=== PATIENT | female | born 1940 | race Caucasian/White ===

== ENCOUNTER 2016-12-01 12:39 | Emergency (ER) | payer BC ==
[~2016-12-01] VITALS: Ht 152.4 cm; Wt 87.8 kg
[~2016-12-01 12:39] MED LIST: ASPI81TA28 PO; LISI-729 PO; METF-384 PO; NVLGI7030 SC; SIMV40TA4 PO
[2016-12-01 12:47] VITALS: TEMP 36.6
[2016-12-01 13:12] VITALS: O2SAT 96
[2016-12-01] MEDS ORDERED: SODIUM CHLORIDE 0.9% 1000ML 1,000 ML IV STA (13:18)
--- NOTE | 2016-12-01 13:36 | EMERGENCY ROOM VISIT NOTE ---
History First contact with patient: 13:18 Chief Complaint: SYNCOPE (NEAR SYNCOPE) Stated Complaint: BLURRED VISION,BLOOD SUGAR 82, WEAK FAINTY Nursing Triage Summary: PT HERE WITH FEELING OF FAINTNESS. PT STATES HAD AN EPISODE OF NOT BEING ABLE TO SEE OUT OF LEFT EYE. PT STATES STILL HAVING SOME VISUAL DISTURBANCES. PT STATES IS DIABETIC, CHECKED SUGAR AND IT WAS 81. PT DID EAT AFTER THAT. DENIES HEADACHE History of Present Illness The patient is a 76 year old female who presents to the Emergency Room with complaints of lightheadedness and vision changes - felt like getting hypoglycemic - getting low lately, happened at 12:30 - dizziness and lightheadedness - asked to go eat, and her vision in her right eye was like she could barely see with lights described as "flashing z's" - says it was like she was in the fog, and it lasted for about 15 minutes - right hand numbness (regularly occurs and thinks she has carpal tunnel) - couldn't even eat food because of vision problems, was able to eat 1 meatball - did not fall - this morning her belly was burning , so she took something similar to zantac, and resolved - took Advil (3 200mg tabs) last night because of neck pain, was so bad she couldn't sleep, this morning her pain was fine - denies fever, chills, chest pain, shortness of breath, dysuria At 9:30 had 60 units of insulin then had grapefruit and yogurt - Does not regularly take her sugars, but remembers before breakfast her sugars were 116 - Has been getting real weak and shaky and even gets to the point where she is getting "foggy in the brain" - Last happened 2 days ago and was as low as 50 Currently still has right hand numbness, but her vision is better - feels a little shaky Review of Systems See HPI for pertinent positives and negatives. A total of ten systems were reviewed and were otherwise negative. Past Medical/Surgical History Medical Problems: (1) Carpal tunnel syndrome (2) Dehydration (3) Diabetes mellitus (4) Fall (5) Left radial head fracture (6) Vomiting and diarrhea Family History Diabetes mellitus Heart disease Social History Smoking Status: Never Smoker Alcohol Use: none Drug Use: marijuana Marital Status: Housing Status: lives with family Occupation Status: employed Current/Historical Medications Scheduled Aspirin (Aspirin Ec), 81 MG PO QAM Insulin Aspart 70/30 (Novolog Mix 70/30), 60 UNITS SC QAM Insulin Aspart 70/30 (Novolog Mix 70/30), 45 UNITS SC QPM Lisinopril (Zestril), 5 MG PO HS Metformin Hcl (Glucophage), 1,000 MG PO BID Simvastatin (Zocor), 40 MG PO QPM Allergies Coded Allergies: Penicillins (Verified Allergy, Intermediate, RASH, 12/01/16) Sulfa Drugs (Verified Allergy, Unknown, RASH, 12/01/16) Tetracyclines (Verified Allergy, Unknown, RASH, 12/01/16) Physical Exam Vital Signs Date Time Temp Pulse Resp B/P Pulse Ox O2 Delivery O2 Flow Rate FiO2 12/01/16 18:20 61 16 145/70 98 12/01/16 17:39 61 18 146/70 98 Room Air 12/01/16 15:23 63 18 106/51 93 Room Air 12/01/16 14:11 69 16 144/74 96 Room Air 12/01/16 13:12 96 Room Air 12/01/16 13:11 69 12/01/16 12:47 36.6 70 16 164/71 96 Room Air Physical Exam GENERAL: Awake, alert, well-appearing, in no distress HENT: Normocephalic, atraumatic. Oropharynx unremarkable. EYES: Normal conjunctiva. Sclera non-icteric. NECK: Supple. No nuchal rigidity. FROM. No JVD. RESPIRATORY: Clear to auscultation. CARDIAC: Regular rate, normal rhythm. Extremities warm and well perfused. Pulses equal. ABDOMEN: Soft, non-distended. No tenderness to palpation. No rebound or guarding. No masses. RECTAL: Deferred. MUSCULOSKELETAL: Chest examination reveals no tenderness. The back is symmetrical on inspection without obvious abnormality. There is no CVA tenderness to palpation. No joint edema. LOWER EXTREMITIES: Calves are equal size bilaterally and non-tender. No edema. No discoloration. NEURO: Normal sensorium. No sensory or motor deficits noted. SKIN: No rash or jaundice noted. Medical Decision & Procedures Laboratory Results 12/01/16 13:30 Red Blood Count 4.03, Mean Corpuscular Volume 88.6, Mean Corpuscular Hemoglobin 29.3, Mean Corpuscular Hemoglobin Concent 33.1, Mean Platelet Volume 9.8, Neutrophils (%) (Auto) 62.8, Lymphocytes (%) (Auto) 29.2, Monocytes (%) (Auto) 6.3, Eosinophils (%) (Auto) 1.0, Basophils (%) (Auto) 0.4, Neutrophils # (Auto) 4.96, Lymphocytes # (Auto) 2.30, Monocytes # (Auto) 0.50, Eosinophils # (Auto) 0.08, Basophils # (Auto) 0.03 12/01/16 13:30 Test 12/01/16 13:30 12/01/16 16:06 White Blood Count 7.89 K/uL (4.8-10.8) Red Blood Count 4.03 M/uL (4.2-5.4) Hemoglobin 11.8 g/dL (12.0-16.0) Hematocrit 35.7 % (37-47) Mean Corpuscular Volume 88.6 fL (80-100) Mean Corpuscular Hemoglobin 29.3 pg (25-34) Mean Corpuscular Hemoglobin Concent 33.1 g/dl (32-36) Platelet Count 221 K/uL (130-400) Mean Platelet Volume 9.8 fL (7.4-10.4) Neutrophils (%) (Auto) 62.8 % Lymphocytes (%) (Auto) 29.2 % Monocytes (%) (Auto) 6.3 % Eosinophils (%) (Auto) 1.0 % Basophils (%) (Auto) 0.4 % Neutrophils # (Auto) 4.96 K/uL (1.4-6.5) Lymphocytes # (Auto) 2.30 K/uL (1.2-3.4) Monocytes # (Auto) 0.50 K/uL (0.11-0.59) Eosinophils # (Auto) 0.08 K/uL (0-0.5) Basophils # (Auto) 0.03 K/uL (0-0.2) RDW Standard Deviation 46.1 fL (36.4-46.3) RDW Coefficient of Variation 14.1 % (11.5-14.5) Immature Granulocyte % (Auto) 0.3 % Immature Granulocyte # (Auto) 0.02 K/uL (0.00-0.02) Prothrombin Time 11.7 SECONDS (9.0-12.0) Prothromb Time International Ratio 1.1 (0.9-1.1) Activated Partial Thromboplast Time 25.9 SECONDS (21.0-31.0) Partial Thromboplastin Ratio 1.0 Anion Gap 4.0 mmol/L (3-11) Estimated GFR () 56.9 Estimated GFR (Non- 49.1 BUN/Creatinine Ratio 24.4 (10-20) Calcium Level 9.1 mg/dl (8.5-10.1) Magnesium Level 1.7 mg/dl (1.8-2.4) Total Bilirubin 0.4 mg/dl (0.2-1) Direct Bilirubin 0.1 mg/dl (0-0.2) Aspartate Amino Transf (AST/SGOT) 17 U/L (15-37) Alanine Aminotransferase (ALT/SGPT) 28 U/L (12-78) Alkaline Phosphatase 87 U/L (45-117) Total Creatine Kinase 150 U/L (26-192) Creatine Kinase MB 4.7 ng/ml (0.5-3.6) Creatine Kinase MB Ratio 3.1 (0-3.0) Troponin I < 0.015 ng/ml (0-0.045) Total Protein 7.3 gm/dl (6.4-8.2) Albumin 3.8 gm/dl (3.4-5.0) Lipase 476 U/L (73-393) Thyroid Stimulating Hormone (TSH) 2.000 uIu/ml (0.300-4.500) Bedside Glucose 122 mg/dl (70-90) Medications Administered Medications (Trade) Dose Ordered Sig/Claire Route Start Time Stop Time Status Last Admin Dose Admin Sodium Chloride (Nss 1000ml) 1,000 ml @ 125 mls/hr Q8H STAT IV 12/01/16 13:18 12/01/16 18:32 DC 12/01/16 13:53 125 MLS/HR Medical Decision Etiologies such as benign positional vertigo, tumor, infection, hypoglycemia, electrolyte abnormalities, cardiac sources, intracerebral event, toxicologic, neurologic, as well as others were entertained. Patient started on IV fluids and ordered cbc, bmp, troponin, ckmb, lipase, ekg, ct head. Patient labs were reviewed and nonspecific findings including elevated BUN, CKMB, and Lactate. Normal troponin, creatinine, and no acute findings on EKG and CT head. At 2:45 patient stood up to get lunch and when sat down had a recurrence of her previous visual symptoms that she corrected and says were occuring in her LEFT eye. She pressed the call soriano and the nurse did a visual acuity exam that she passed. The vision changes lasted 15 minutes and have since resolved. At the time of exam (3:50) the patient had improved with no complaints of lightheadedness or dizziness. Due to normal blood glucose and hand numbness along with vision changes ordered MRI without contrast. MRI and current workup point to no acute abnormalities. Called Dr. Young, the patients current Opthalmologist who thinks the current symptoms are more likely attributable to a Migraine with Aura. Patient instructed to follow up next week with Dr. Wilkes and Dr. Young and return to hospital if symptoms worsen. 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 (PCP) Patient Instructions My [facility] Problem Qualifiers
[2016-12-01 13:46] LABS: BASO % 0.4 %; BASO ABS # 0.03 K/uL (0-0.2); COMPLETE YES; HEMATOCRIT 35.7 % (37-47); IG% 0.3 %; LYMPH % 29.2 %; MEAN CELL VOLUME 88.6 fL (80-100); MEAN CORPUSCULAR HEMOGLOBIN 29.3 pg (25-34); MEAN CORPUSCULAR HGB CONC 33.1 g/dl (32-36); MEAN PLATELET VOLUME 9.8 fL (7.4-10.4); MONO % 6.3 %; NEUT % 62.8 %; PLATELET COUNT 221 K/uL (130-400); RED BLOOD COUNT 4.03 M/uL (4.2-5.4); WHITE BLOOD COUNT 7.89 K/uL (4.8-10.8)
[2016-12-01 13:53] LABS: INR 1.1 (0.9-1.1); PROTHROMBIN TIME (PATIENT) 11.7 SECONDS (9.0-12.0)
[2016-12-01 14:04] VITALS: Ht 152.4 cm; Wt 87.8 kg
[2016-12-01 14:09] LABS: ALT/SGPT 28 U/L (12-78); AST/SGOT 17 U/L (15-37); BLOOD UREA NITROGEN 27 mg/dl (7-18); BUN/CREATININE RATIO 24.4 (10-20); CALCIUM 9.1 mg/dl (8.5-10.1); CARBON DIOXIDE 29 mmol/L (21-32); CHLORIDE 104 mmol/L (98-107); GLUCOSE 77 mg/dl (70-99); MAGNESIUM 1.7 mg/dl (1.8-2.4); POTASSIUM 4.3 mmol/L (3.5-5.1); SODIUM 137 mmol/L (136-145)
[2016-12-01 14:17] LABS: ALKALINE PHOSPHATASE 87 U/L (45-117); CKMB/CK RATIO 3.1 (0-3.0)
--- NOTE | 2016-12-01 14:34 | DIAGNOSTIC IMAGING REPORT ---
CT HEAD WITHOUT CONTRAST (CT) CLINICAL HISTORY: Visual disturbance. Right hand numbness. COMPARISON STUDY: 03/23/2011 TECHNIQUE: Axial CT of the brain is performed from the vertex to the skull base. IV contrast was not administered for this examination. CT DOSE: 638.56 mGycm FINDINGS: No intra or extra-axial mass lesions are visualized. There is no CT evidence of acute cortical infarction. There is no evidence of midline shift. There is no acute hemorrhage. No calvarial fractures are visualized. There are patchy minimal matter hypodensities likely on a small vessel basis. A hypodensity adjacent the posterior limb of the left internal capsule, while nonspecific likely represents a prominent CSF space. There is no evidence of pathologic ventricular dilatation. There is no evidence of acute sinusitis IMPRESSION: No acute intracranial findings Electronically signed by: Otoniel Khan M.D. 12/01/2016 2:33 PM Dictated Date/Time: 12/01/2016 2:31 PM
--- NOTE | 2016-12-01 17:34 | DIAGNOSTIC IMAGING REPORT ---
Brain MRI WITHOUT CONTRAST HISTORY: Right hand numbness, left eye visual disturbance TECHNIQUE: Multiplanar multisequence MRI of the brain was performed without the use of contrast. COMPARISON STUDY: None. FINDINGS: There are no areas of restricted diffusion to suggest acute infarction. The midline structures are intact. The paranasal sinuses are clear. The mastoid air cells are clear. The ventricles and sulci are within normal limits for age. There is no mass, hematoma, midline shift. The major vascular flow-voids at the skull base are well maintained. IMPRESSION: No acute intracranial abnormality. Electronically signed by: Shahzad Blevins M.D. 12/01/2016 5:32 PM Dictated Date/Time: 12/01/2016 5:32 PM
[2016-12-01 18:20] VITALS: BP 145/70; PULSE 61; O2SAT 98
--- NOTE | 2016-12-01 18:27 | EMERGENCY ROOM VISIT NOTE ---
History Report prepared by Dilan: Andriy Karimi Under the Supervision of: Dr. Brett Eden M.D. First contact with patient: 13:18 Chief Complaint: SYNCOPE (NEAR SYNCOPE) Stated Complaint: BLURRED VISION,BLOOD SUGAR 82, WEAK FAINTY Nursing Triage Summary: PT HERE WITH FEELING OF FAINTNESS. PT STATES HAD AN EPISODE OF NOT BEING ABLE TO SEE OUT OF LEFT EYE. PT STATES STILL HAVING SOME VISUAL DISTURBANCES. PT STATES IS DIABETIC, CHECKED SUGAR AND IT WAS 81. PT DID EAT AFTER THAT. DENIES HEADACHE History of Present Illness The patient is a 76 year old female who presents to the Emergency Room with complaints of left eye blurry vision starting about an hour ago. She reports "flashing Zs" in her vision. She denies any double vision. She also had lightheadedness and dizziness. She has a history of diabetes. She has a history of similar symptoms with hypoglycemia but the changes in vision are new. She took 60 units of NovoLog with grapefruit and yogurt this morning. She also complains of right hand numbness which she states may be related to her carpel tunnel. The patient had a similar episode 2 days ago and her blood sugar level had dropped into the 50s. She is unsure of her blood sugar level during the episodes with changes in vision. The patient currently reports that her vision has improved but she states that her vision continues be blurry. She denies any pain. Her vision in the right eye is at baseline. She also continues to complain of right hand numbness. She currently feels hypoglycemic. Pt denies LOC , headache, fevers, chills, diaphoresis, neck pain, chest pain, breathing difficulties, nausea, vomiting, abdominal pain, back pain, melena, hematochezia , urinary symptoms, numbness, weakness, lymphadenopathy, rash, or other complaints. She denies any history of TIA or stroke. Source of History: patient Onset: about an hour and a half ago Position: eye (left) Symptom Intensity: No pain Quality: other (blurry vision) Timing: other (improved) Associated Symptoms: + numbness Review of Systems See HPI for pertinent positives and negatives. A total of ten systems were reviewed and were otherwise negative. Past Medical & Surgical Medical Problems: (1) Carpal tunnel syndrome (2) Dehydration (3) Diabetes mellitus (4) Fall (5) Left radial head fracture (6) Vomiting and diarrhea Family History Diabetes mellitus Heart disease Social History Smoking Status: Never Smoker Alcohol Use: none Drug Use: marijuana Marital Status: Housing Status: lives with family Occupation Status: employed Current/Historical Medications Scheduled Aspirin (Aspirin Ec), 81 MG PO QAM Insulin Aspart 70/30 (Novolog Mix 70/30), 60 UNITS SC QAM Insulin Aspart 70/30 (Novolog Mix 70/30), 45 UNITS SC QPM Lisinopril (Zestril), 5 MG PO HS Metformin Hcl (Glucophage), 1,000 MG PO BID Simvastatin (Zocor), 40 MG PO QPM Allergies Coded Allergies: Penicillins (Verified Allergy, Intermediate, RASH, 12/01/16) Sulfa Drugs (Verified Allergy, Unknown, RASH, 12/01/16) Tetracyclines (Verified Allergy, Unknown, RASH, 12/01/16) Physical Exam Vital Signs Date Time Temp Pulse Resp B/P Pulse Ox O2 Delivery O2 Flow Rate FiO2 12/01/16 17:39 61 18 146/70 98 Room Air 12/01/16 15:23 63 18 106/51 93 Room Air 12/01/16 14:11 69 16 144/74 96 Room Air 12/01/16 13:12 96 Room Air 12/01/16 13:11 69 12/01/16 12:47 36.6 70 16 164/71 96 Room Air Physical Exam GENERAL: Awake, alert, well appearing, no distress HENT: Normocephalic, atraumatic. TM's normal. Oropharynx unremarkable. EYES: PERRL. EOMI. Normal conjunctiva. Sclera non-icteric. NECK: Supple. No nuchal rigidity. FROM. No JVD or bruit. RESPIRATORY: CTA CARDIAC: RRR. No murmur. ABDOMEN: Soft, non distended. No tenderness to palpation. No rebound or guarding. No masses. RECTAL: Deferred. MUSCULOSKELETAL: Unremarkable. No edema. No discoloration. Gross motor strength symmetric. Negative Tinel and Phalen test on the right side. NEURO: Cranial nerves 2-12 grossly intact. Normal sensorium. No sensory or motor deficits noted. Speech normal. No pronator drift. SKIN: No rash or jaundice noted. LYMPH: No adenopathy. Medical Decision & Procedures ER Provider Diagnostic Interpretation: CT: Radiology results as stated below per my review and radiologist interpretation CT HEAD WITHOUT CONTRAST (CT) CLINICAL HISTORY: Visual disturbance. Right hand numbness. COMPARISON STUDY: 03/23/2011 TECHNIQUE: Axial CT of the brain is performed from the vertex to the skull base. IV contrast was not administered for this examination. CT DOSE: 638.56 mGycm FINDINGS: No intra or extra-axial mass lesions are visualized. There is no CT evidence of acute cortical infarction. There is no evidence of midline shift. There is no acute hemorrhage. No calvarial fractures are visualized. There are patchy minimal matter hypodensities likely on a small vessel basis. A hypodensity adjacent the posterior limb of the left internal capsule, while nonspecific likely represents a prominent CSF space. There is no evidence of pathologic ventricular dilatation. There is no evidence of acute sinusitis IMPRESSION: No acute intracranial findings Electronically signed by: Otoniel Khan M.D. 12/01/2016 2:33 PM Dictated Date/Time: 12/01/2016 2:31 PM Laboratory Results 12/01/16 13:30 Red Blood Count 4.03, Mean Corpuscular Volume 88.6, Mean Corpuscular Hemoglobin 29.3, Mean Corpuscular Hemoglobin Concent 33.1, Mean Platelet Volume 9.8, Neutrophils (%) (Auto) 62.8, Lymphocytes (%) (Auto) 29.2, Monocytes (%) (Auto) 6.3, Eosinophils (%) (Auto) 1.0, Basophils (%) (Auto) 0.4, Neutrophils # (Auto) 4.96, Lymphocytes # (Auto) 2.30, Monocytes # (Auto) 0.50, Eosinophils # (Auto) 0.08, Basophils # (Auto) 0.03 12/01/16 13:30 Test 12/01/16 13:30 12/01/16 16:06 White Blood Count 7.89 K/uL (4.8-10.8) Red Blood Count 4.03 M/uL (4.2-5.4) Hemoglobin 11.8 g/dL (12.0-16.0) Hematocrit 35.7 % (37-47) Mean Corpuscular Volume 88.6 fL (80-100) Mean Corpuscular Hemoglobin 29.3 pg (25-34) Mean Corpuscular Hemoglobin Concent 33.1 g/dl (32-36) Platelet Count 221 K/uL (130-400) Mean Platelet Volume 9.8 fL (7.4-10.4) Neutrophils (%) (Auto) 62.8 % Lymphocytes (%) (Auto) 29.2 % Monocytes (%) (Auto) 6.3 % Eosinophils (%) (Auto) 1.0 % Basophils (%) (Auto) 0.4 % Neutrophils # (Auto) 4.96 K/uL (1.4-6.5) Lymphocytes # (Auto) 2.30 K/uL (1.2-3.4) Monocytes # (Auto) 0.50 K/uL (0.11-0.59) Eosinophils # (Auto) 0.08 K/uL (0-0.5) Basophils # (Auto) 0.03 K/uL (0-0.2) RDW Standard Deviation 46.1 fL (36.4-46.3) RDW Coefficient of Variation 14.1 % (11.5-14.5) Immature Granulocyte % (Auto) 0.3 % Immature Granulocyte # (Auto) 0.02 K/uL (0.00-0.02) Prothrombin Time 11.7 SECONDS (9.0-12.0) Prothromb Time International Ratio 1.1 (0.9-1.1) Activated Partial Thromboplast Time 25.9 SECONDS (21.0-31.0) Partial Thromboplastin Ratio 1.0 Anion Gap 4.0 mmol/L (3-11) Estimated GFR () 56.9 Estimated GFR (Non- 49.1 BUN/Creatinine Ratio 24.4 (10-20) Calcium Level 9.1 mg/dl (8.5-10.1) Magnesium Level 1.7 mg/dl (1.8-2.4) Total Bilirubin 0.4 mg/dl (0.2-1) Direct Bilirubin 0.1 mg/dl (0-0.2) Aspartate Amino Transf (AST/SGOT) 17 U/L (15-37) Alanine Aminotransferase (ALT/SGPT) 28 U/L (12-78) Alkaline Phosphatase 87 U/L (45-117) Total Creatine Kinase 150 U/L (26-192) Creatine Kinase MB 4.7 ng/ml (0.5-3.6) Creatine Kinase MB Ratio 3.1 (0-3.0) Troponin I < 0.015 ng/ml (0-0.045) Total Protein 7.3 gm/dl (6.4-8.2) Albumin 3.8 gm/dl (3.4-5.0) Lipase 476 U/L (73-393) Thyroid Stimulating Hormone (TSH) 2.000 uIu/ml (0.300-4.500) Bedside Glucose 122 mg/dl (70-90) Laboratory results reviewed by me Medications Administered Medications (Trade) Dose Ordered Sig/Claire Route Start Time Stop Time Status Last Admin Dose Admin Sodium Chloride (Nss 1000ml) 1,000 ml @ 125 mls/hr Q8H STAT IV 12/01/16 13:18 12/01/16 21:17 12/01/16 13:53 125 MLS/HR ECG Indication: other (lightheadedness, dizziness) Rate (beats per minute): 65 Rhythm: normal sinus Findings: nonspecific-ST abn (Lateral) Comparison ECG Date: April 12, 2015 Change: no significant change ED Course 1318: The patient was evaluated in room B09. A complete history and physical exam was performed. Sodium Chloride 1000 ml @ 125 mls/hr IV 1548: I reevaluated the patient. The patient corrected herself and said that it is her left eye that has been having these visual changes. At 1445, the patient stood up to get food. When she sat back down she had had an episode of visual changes which lasted for about 15 minutes. The Emergency Room nurse did a vision test that had no acute findings and her vision was not impaired. The patient currently denies any visual symptoms. She also currently denies any lightheadedness or dizziness. 1603: I performed funduscopic exam which was normal, pupils were equal, round, and reactive to light. The patient is not currently hypoglycemic. She is agreeable to an MRI. Medical Decision Triage Nursing notes reviewed. The patient's presentation and history were concerning for visual disturbance and possible hypoglycemia. Etiologies such as metabolic, infection, hypo/hyperglycemia, electrolyte abnormalities, cardiac sources, intracerebral event, toxicologic, neurologic, as well as others were entertained. The patient was evaluated. She was not hypoglycemic by bedside testing. She had no focal neurologic findings. Her ophthalmologic examination was unremarkable. Funduscopic examination did not reveal any obvious abnormalities. The patient had unremarkable laboratory testing. She underwent CT imaging of the head which was unremarkable as well. Visual acuity denies any significant issues. The patient had a brief episode again in the emergency department and visual acuity was checked without issues. She underwent MRI imaging which did not reveal any evidence of intracranial pathology. Given the fact of the minimal symptoms and negative workup a consult was placed with ophthalmology. No further intervention was recommended and that office follow- up was agreed upon. The patient will follow-up with her primary physician and ophthalmology next week. If she worsens at all over the weekend she will come back to the emergency department. I gave my usual and customary discussion regarding this issue. The patient does note that the right hand has been intermittently tingly and not related to this event today. The patient was seen and examined with Dr. Triplett, resident physician. We discussed the case and treatments ordered, reviewed the results, and determine the disposition. Please refer to the resident's note for additional details. I have been directly involved with the management and disposition as well as independently evaluated the patient as documented in this note. By the evaluation outlined above other emergent etiologies such as those listed in the differential, as well as others, were deemed relatively unlikely. The patient was informed about the findings as listed above. All questions were answered and she was very pleased with the treatment. Return instructions were outlined and the patient was discharged in stable condition. The patient was referred to ophthalmology and her PCP for follow-up next week for a recheck of the current condition. The chart was completed utilizing [employer] Speech voice recognition software. Grammatical errors, random word insertions, pronoun errors, and incomplete sentences are an occasional consequence of this system due to software limitations, ambient noise, and hardware issues. Any formal questions or concerns about the content, text, or information contained within the body of this dictation should be directly addressed to the physician for clarification. Impression Primary Impression: Visual disturbance Additional Impression: Diabetes Scribe Attestation The scribe's documentation has been prepared under my direction and personally reviewed by me in its entirety. I confirm that the note above accurately reflects all work, treatment, procedures, and medical decision making performed by me. Departure Information Dispostion Home / Self-Care Referrals Lloyd Quick M.D. (PCP) Patient Instructions My [facility] Problem Qualifiers
== END 2016-12-01 18:20 | disposition home or self-care (01) ==
LOC: C.EDB 12:42
DX: G43.109 Migraine with aura, not intractable, without status migrainosus (principal); H53.9 Unspecified visual disturbance; E11.9 Type 2 diabetes mellitus without complications; R42 Dizziness and giddiness; Z91.81 History of falling; Z83.3 Family history of diabetes mellitus; Z79.4 Long term (current) use of insulin; Z79.82 Long term (current) use of aspirin; Z79.84 Long term (current) use of oral hypoglycemic drugs

== ENCOUNTER → 2016-12-05 | Outpatient (CLI) | payer BC ==
[2016-12-05 09:57] LABS: BLOOD UREA NITROGEN 25 mg/dl (7-18); BUN/CREATININE RATIO 26.6 (10-20); CARBON DIOXIDE 26 mmol/L (21-32); CHLORIDE 106 mmol/L (98-107); CHOLESTEROL 132 mg/dl (0-200); CREATININE 0.94 mg/dl (0.60-1.20); GLUCOSE 128 mg/dl (70-99); POTASSIUM 4.8 mmol/L (3.5-5.1); SODIUM 141 mmol/L (136-145); TRIGLYCERIDES 124 mg/dl (0-150); VERY LOW DENSITY LIPOPROT CALC 25 mg/dl
[2016-12-05 10:01] LABS: CHOLESTEROL/HDL RATIO 2.2; HDL CHOLESTEROL 59 mg/dl
[2016-12-05 10:29] LABS: ESTIMATED AVERAGE GLUCOSE 128 mg/dl; HA1C FLAG Normal (Normal)
[2016-12-05 10:45] LABS: RATIO 13.2 mcg/mg (0-30.0)
== END | disposition home or self-care (01) ==
LOC: C.LAB 08:07
PROVIDERS: ATTEND Internal Medicine
DX: Z00.00 Encounter for general adult medical examination without abnormal findings (principal); E78.5 Hyperlipidemia, unspecified; I10 Essential (primary) hypertension; E11.9 Type 2 diabetes mellitus without complications

== ENCOUNTER → 2017-03-28 | Outpatient (CLI) | payer BC ==
--- NOTE | 2017-03-28 13:50 | MAMMOGRAPHY REPORT ---
BILATERAL DIGITAL SCREENING MAMMOGRAM WITH CAD: 03/28/2017 CLINICAL HISTORY: Routine screening. TECHNIQUE: Current study was also evaluated with a Computer Aided Detection (CAD) system. Bilateral CC and MLO and left XCCL views were obtained. COMPARISON: Comparison is made to exams dated: 12/02/2015 mammogram, 11/24/2014 mammogram, 10/06/2013 ma mmogram, 10/03/2012 mammogram, 09/05/2011 mammogram, and 08/31/2010 mammogram - [facility] ter. BREAST COMPOSITION: There are scattered areas of fibroglandular density in both breasts. FINDINGS: No suspicious masses, calcifications, or areas of architectural distortion are noted in ei ther breast. There has been no significant interval change compared to prior exams. Bilateral asymme tries are stable. IMPRESSION: ACR BI-RADS CATEGORY 2: BENIGN There is no mammographic evidence of malignancy. A 1 year screening mammogram is recommended. The pa tient will receive written notification of the results. Approximately 10% of breast cancers are not detected with mammography. A negative mammographic report should not delay biopsy if a clinically suggestive mass is present. Maranda Parham M.D. /:03/28/2017 12:09:43 [employer] Pilot: Caty CRABTREE(Patti)(Jareth), [facility] letter sent: Normal 1/2 BI-RADS Code: ACR BI-RADS Category 2: Benign
== END | disposition home or self-care (01) ==
LOC: C.MAMM 11:16
PROVIDERS: ATTEND Internal Medicine
DX: Z12.31 Encounter for screening mammogram for malignant neoplasm of breast (principal)

== ENCOUNTER → 2017-06-07 | Outpatient (CLI) | payer BC ==
[2017-06-07 10:04] LABS: BLOOD UREA NITROGEN 27 mg/dl (7-18); BUN/CREATININE RATIO 27.1 (10-20); CALCIUM 9.4 mg/dl (8.5-10.1); CARBON DIOXIDE 26 mmol/L (21-32); CHLORIDE 105 mmol/L (98-107); CREATININE 0.98 mg/dl (0.60-1.20); ESTIMATED AVERAGE GLUCOSE 140 mg/dl; GLUCOSE 153 mg/dl (70-99); HA1C FLAG Normal (Normal); SODIUM 137 mmol/L (136-145)
[2017-06-07 10:08] LABS: CHOLESTEROL 125 mg/dl (0-200); HDL CHOLESTEROL 62 mg/dl; TRIGLYCERIDES 161 mg/dl (0-150); VERY LOW DENSITY LIPOPROT CALC 32 mg/dl
== END | disposition home or self-care (01) ==
LOC: C.LAB 08:56
PROVIDERS: ATTEND Internal Medicine
DX: I10 Essential (primary) hypertension (principal); E78.5 Hyperlipidemia, unspecified; E11.9 Type 2 diabetes mellitus without complications

== ENCOUNTER → 2017-10-03 | Outpatient (CLI) | payer BC ==
[2017-10-03 16:06] LABS: INFLUENZA B ANTIGEN Neg for Influ B (NEG)
== END | disposition home or self-care (01) ==
LOC: C.LAB 14:31
PROVIDERS: ATTEND Internal Medicine
DX: J10.1 Influenza due to other identified influenza virus with other respiratory manifestations (principal)

== ENCOUNTER 2017-11-27 18:34 | Emergency (ER) | payer BC ==
[~2017-11-27] VITALS: Ht 149.9 cm; Wt 93.1 kg
[~2017-11-27 18:34] MED LIST changes: -ASPI81TA28 PO; -LISI-729 PO; -METF-384 PO; -NVLGI7030 SC
[2017-11-27 18:41] VITALS: TEMP 37.6; Ht 149.9 cm; Wt 93.1 kg
[2017-11-27] MEDS ORDERED: NVLGI7030 SC ×2 (18:50)
[2017-11-27] MEDS ORDERED: METF-384 PO (18:50)
[2017-11-27] MEDS ORDERED: LISI-729 PO (18:50)
[2017-11-27] MEDS ORDERED: ASPI81TA28 PO (18:50)
[2017-11-27] MEDS ORDERED: ONDANSETRON INJ 2 MG/ML 2 ML VIAL IV STA (18:53)
[2017-11-27] MEDS ORDERED: SODIUM CHLORIDE 0.9% 1000ML 1,000 ML IV STA (18:53)
[2017-11-27] MEDS ORDERED: KETOROLAC TROMETHAMINE 30 MG/ML VIAL IV STA (18:53)
[2017-11-27] MEDS ORDERED: OPTIRAY 320 IV PRN (19:00)
[2017-11-27 19:29] LABS: BASO % 0.2 %; BASO ABS # 0.02 K/uL (0-0.2); EOS % 0.5 %; EOS ABS # 0.05 K/uL (0-0.5); HEMATOCRIT 35.6 % (37-47); HEMOGLOBIN 11.9 g/dL (12.0-16.0); IG# 0.03 K/uL (0.00-0.02); LYMPH % 17.2 %; LYMPH ABS # 1.77 K/uL (1.2-3.4); MEAN CELL VOLUME 86.2 fL (80-100); MEAN CORPUSCULAR HEMOGLOBIN 28.8 pg (25-34); MEAN CORPUSCULAR HGB CONC 33.4 g/dl (32-36); MEAN PLATELET VOLUME 9.3 fL (7.4-10.4); MONO % 6.8 %; NEUT ABS # 7.73 K/uL (1.4-6.5); PLATELET COUNT 189 K/uL (130-400); RED CELL DISTRIBUTION WIDTH SD 43.7 fL (36.4-46.3)
[2017-11-27 19:57] LABS: ALBUMIN 3.5 gm/dl (3.4-5.0); CALCIUM 9.3 mg/dl (8.5-10.1); CREATININE 0.9 mg/dl (0.60-1.20); POTASSIUM 4.5 mmol/L (3.5-5.1)
[2017-11-27 20:01] LABS: TOTAL PROTEIN 7.4 gm/dl (6.4-8.2)
--- NOTE | 2017-11-27 20:36 | DIAGNOSTIC IMAGING REPORT ---
CT ABD/PELVIS IV CONTRAST ONLY CLINICAL HISTORY: Left lower quadrant abdominal pain COMPARISON STUDY: 10/13/2014 TECHNIQUE: Following the IV administration of 94 mL of Optiray-320, CT scan of the abdomen and pelvis was performed from the lung bases to the proximal femurs. Images are reviewed in the axial, sagittal, and coronal planes. IV contrast was administered without complication. A dose lowering technique was utilized adhering to the principles of ALARA. CT DOSE: 1079.41 mGy.cm FINDINGS: Lower chest: There is stable left lower lobe atelectasis/scarring Liver: There is hepatic steatosis. No focal hepatic masses are visualized. There is a subtle nodular contour of the liver and early cirrhotic change with be considered Gallbladder: Not visualized and presumed surgically absent Spleen: Borderline enlarged. No focal splenic masses identified Pancreas: Unremarkable. Adrenal glands: Unremarkable. Kidneys: Is a 23 mm right renal cyst. There is trace perinephric fluid. Bowel: There are no transition zones indicate bowel obstruction. There is a duodenal diverticulum. The appendix appears normal. There is colonic diverticulosis. There is mild infiltration the perisigmoid fat consistent with diverticulitis. Peritoneum: There is no free intraperitoneal air. There is trace pelvic fluid.. There is a small fat-containing umbilical hernia Vasculature: The abdominal aorta is normal in course and caliber. Adenopathy: None. Pelvic viscera: The uterus is surgically absent. Mild perivesical infiltration is likely secondary to adjacent diverticulitis. Skeletal structures: No destructive osseous lesions are seen. IMPRESSION: 1. Acute sigmoid diverticulitis. No evidence of peridiverticular abscess 3. No evidence of bowel obstruction. No evidence of free air 4. Normal appendix 5. Hepatic steatosis Electronically signed by: Otoniel Khan M.D. 11/27/2017 8:35 PM Dictated Date/Time: 11/27/2017 8:29 PM
[2017-11-27] MEDS ORDERED: METRONIDAZOLE 250 MG TAB PO STA (20:42)
[2017-11-27] MEDS ORDERED: CIPROFLOXACIN 500 MG TAB PO STA (20:42)
[2017-11-27] MEDS ORDERED: METR-163 PO (20:45)
[2017-11-27] MEDS ORDERED: CIPR-255 PO (20:45)
[2017-11-27] MEDS ORDERED: ONDA4TAB10 SL (20:45)
--- NOTE | 2017-11-27 20:46 | EMERGENCY ROOM VISIT NOTE ---
History Report prepared by Dilan: Jonathan Nguyen Under the Supervision of: Dr. Alberto Zamora D.O. First contact with patient: 18:43 Chief Complaint: ABDOMINAL PAIN Stated Complaint: STOMACH PAIN - FEVER - DIARRHEA - NAUSEA History of Present Illness The patient is a 77 year old female who presents to the Emergency Room with complaints of persistent lower abdominal pain since yesterday afternoon. She currently rates her pain a 7/10 in severity. She has a history of diverticulitis. She states that it resolved. She denies taking any antibiotics at that time. She reports the pain is similar to previous symptoms related to diverticulitis. She reports black stools and diarrhea. She took TUMS and Maalox. She denies taking any Pepto Bismol. She notes mild nausea. She has a history of diabetes. She notes that she has tried to increase her fluid intake, though states she has not had much fluid today. She notes her blood glucose decreased. She regularly takes baby Aspirin. She denies any recent antibiotic use. She denies any shortness of breath or history of lung problems. Source of History: patient Onset: since yesterday afternoon Position: abdomen Symptom Intensity: 7/10 Timing: other (persistent) Associated Symptoms: + nausea, + diarrhea, No SOB Review of Systems See HPI for pertinent positives & negatives. A total of 10 systems reviewed and were otherwise negative. Past Medical & Surgical Medical Problems: (1) Carpal tunnel syndrome (2) Dehydration (3) Diabetes mellitus (4) Fall (5) Left radial head fracture (6) Vomiting and diarrhea Family History Diabetes mellitus Heart disease Social History Smoking Status: Never Smoker Alcohol Use: none Drug Use: marijuana Marital Status: Housing Status: lives with family Occupation Status: employed Current/Historical Medications Scheduled Aspirin (Aspirin Ec), 81 MG PO QAM Ciprofloxacin Hcl (Cipro), 500 MG PO BID Insulin Aspart 70/30 (Novolog Mix 70/30), 65 UNITS SC QAM Insulin Aspart 70/30 (Novolog Mix 70/30), 45 UNITS SC QPM Lisinopril (Zestril), 5 MG PO HS Metformin Hcl (Glucophage), 1,000 MG PO BID Metronidazole (Flagyl), 500 MG PO TID Ondasetron Odt (Zofran Odt), 4 MG SL Q6H Simvastatin (Simvastatin), 40 MG PO QPM Allergies Coded Allergies: Penicillins (Verified Allergy, Intermediate, RASH, 11/27/17) Sulfa Drugs (Verified Allergy, Unknown, RASH, 11/27/17) Tetracyclines (Verified Allergy, Unknown, RASH, 11/27/17) Physical Exam Vital Signs Date Time Temp Pulse Resp B/P (MAP) Pulse Ox O2 Delivery O2 Flow Rate FiO2 11/27/17 20:33 71 20 120/59 93 Room Air 11/27/17 18:41 37.6 85 20 158/78 94 Room Air Physical Exam CONSTITUTIONAL/VITAL SIGNS: Reviewed / noted above. GENERAL: Non-toxic in appearance. INTEGUMENTARY: Warm, dry, and [place]. HEAD: Normocephalic. EYES: without scleral icterus or trauma. ENT/OROPHARYNX: clear and moist. LYMPHADENOPATHY/NECK: Is supple without lymphadenopathy or meningismus. RESPIRATORY: Lungs clear and equal. CARDIOVASCULAR: Regular rate and rhythm. GI/ABDOMEN: Soft and tender to suprapubic and LLQ region. No organomegaly or pulsatile mass. No rebound or guarding. Normal bowel sounds. EXTREMITIES: Warm and well perfused. BACK: No CVA tenderness. NEUROLOGICAL: Intact without focal deficits. PSYCHIATRIC: normal affect. MUSCULOSKELETAL: Normally developed with good muscle tone. Medical Decision & Procedures ER Provider Diagnostic Interpretation: Radiology results as stated below per my review and radiologist interpretation: CT ABD/PELVIS IV CONTRAST ONLY CLINICAL HISTORY: Left lower quadrant abdominal pain COMPARISON STUDY: 10/13/2014 TECHNIQUE: Following the IV administration of 94 mL of Optiray-320, CT scan of the abdomen and pelvis was performed from the lung bases to the proximal femurs. Images are reviewed in the axial, sagittal, and coronal planes. IV contrast was administered without complication. A dose lowering technique was utilized adhering to the principles of ALARA. CT DOSE: 1079.41 mGy.cm FINDINGS: Lower chest: There is stable left lower lobe atelectasis/scarring Liver: There is hepatic steatosis. No focal hepatic masses are visualized. There is a subtle nodular contour of the liver and early cirrhotic change with be considered Gallbladder: Not visualized and presumed surgically absent Spleen: Borderline enlarged. No focal splenic masses identified Pancreas: Unremarkable. Adrenal glands: Unremarkable. Kidneys: Is a 23 mm right renal cyst. There is trace perinephric fluid. Bowel: There are no transition zones indicate bowel obstruction. There is a duodenal diverticulum. The appendix appears normal. There is colonic diverticulosis. There is mild infiltration the perisigmoid fat consistent with diverticulitis. Peritoneum: There is no free intraperitoneal air. There is trace pelvic fluid.. There is a small fat-containing umbilical hernia Vasculature: The abdominal aorta is normal in course and caliber. Adenopathy: None. Pelvic viscera: The uterus is surgically absent. Mild perivesical infiltration is likely secondary to adjacent diverticulitis. Skeletal structures: No destructive osseous lesions are seen. IMPRESSION: 1. Acute sigmoid diverticulitis. No evidence of peridiverticular abscess 3. No evidence of bowel obstruction. No evidence of free air 4. Normal appendix 5. Hepatic steatosis Electronically signed by: Otoniel Khan M.D. 11/27/2017 8:35 PM Dictated Date/Time: 11/27/2017 8:29 PM Laboratory Results 11/27/17 19:08 Red Blood Count 4.13, Mean Corpuscular Volume 86.2, Mean Corpuscular Hemoglobin 28.8, Mean Corpuscular Hemoglobin Concent 33.4, Mean Platelet Volume 9.3, Neutrophils (%) (Auto) 75.0, Lymphocytes (%) (Auto) 17.2, Monocytes (%) (Auto) 6.8, Eosinophils (%) (Auto) 0.5, Basophils (%) (Auto) 0.2, Neutrophils # (Auto) 7.73, Lymphocytes # (Auto) 1.77, Monocytes # (Auto) 0.70, Eosinophils # (Auto) 0.05, Basophils # (Auto) 0.02 11/27/17 19:08 Test 11/27/17 19:08 White Blood Count 10.30 K/uL (4.8-10.8) Red Blood Count 4.13 M/uL (4.2-5.4) Hemoglobin 11.9 g/dL (12.0-16.0) Hematocrit 35.6 % (37-47) Mean Corpuscular Volume 86.2 fL (80-100) Mean Corpuscular Hemoglobin 28.8 pg (25-34) Mean Corpuscular Hemoglobin Concent 33.4 g/dl (32-36) Platelet Count 189 K/uL (130-400) Mean Platelet Volume 9.3 fL (7.4-10.4) Neutrophils (%) (Auto) 75.0 % Lymphocytes (%) (Auto) 17.2 % Monocytes (%) (Auto) 6.8 % Eosinophils (%) (Auto) 0.5 % Basophils (%) (Auto) 0.2 % Neutrophils # (Auto) 7.73 K/uL (1.4-6.5) Lymphocytes # (Auto) 1.77 K/uL (1.2-3.4) Monocytes # (Auto) 0.70 K/uL (0.11-0.59) Eosinophils # (Auto) 0.05 K/uL (0-0.5) Basophils # (Auto) 0.02 K/uL (0-0.2) RDW Standard Deviation 43.7 fL (36.4-46.3) RDW Coefficient of Variation 14.0 % (11.5-14.5) Immature Granulocyte % (Auto) 0.3 % Immature Granulocyte # (Auto) 0.03 K/uL (0.00-0.02) Anion Gap 7.0 mmol/L (3-11) Est Creatinine Clear Calc Drug Dose 53.0 ml/min Estimated GFR () 72.0 Estimated GFR (Non- 62.1 BUN/Creatinine Ratio 17.3 (10-20) Calcium Level 9.3 mg/dl (8.5-10.1) Total Bilirubin 0.7 mg/dl (0.2-1) Direct Bilirubin 0.2 mg/dl (0-0.2) Aspartate Amino Transf (AST/SGOT) 31 U/L (15-37) Alanine Aminotransferase (ALT/SGPT) 37 U/L (12-78) Alkaline Phosphatase 94 U/L (45-117) Total Protein 7.4 gm/dl (6.4-8.2) Albumin 3.5 gm/dl (3.4-5.0) Lipase 183 U/L (73-393) Laboratory results as stated above per my review. Medications Administered Medications (Trade) Dose Ordered Sig/Claire Route Start Time Stop Time Status Last Admin Dose Admin Sodium Chloride 1,000 ml @ 999 mls/hr Q1H1M STAT IV 11/27/17 18:53 11/27/17 19:53 DC 11/27/17 19:07 999 MLS/HR Ondansetron HCl (Zofran Inj) 4 mg NOW STAT IV 5/8/18 18:53 11/27/17 18:55 DC 11/27/17 19:07 4 MG Ketorolac Tromethamine (Toradol Inj) 30 mg NOW STAT IV 11/27/17 18:53 11/27/17 18:55 DC 11/27/17 19:07 30 MG ED Course 1848: Previous medical records were reviewed. The patient was evaluated in room B10. A complete history and physical examination was performed. 1852: Ordered Toradol 30 mg IV, Zofran 4 mg IV, and Sodium Chloride 1,000 ml @ 999 mls/hr IV 2041: Ordered Flagyl 500 mg PO and Cipro 500 mg PO 2045: I reassessed the patient at this time. She is feeling better and resting comfortably. I discussed the results and treatment plan with the patient. I answered all pertaining questions that she had. She expressed understanding and verbalized agreement. The patient will be discharged home. Medical Decision Differential considered: pancreatitis, hepatitis, or acute cholecystitis, AAA, UTI, pyelonephritis, kidney stones, appendicitis, diverticulitis, shingles, bowel obstruction mesenteric ischemia, intussusception, hernia. This is a 77-year-old female who presents to the ED with a chief complaint of abdominal pain. The patient states that her symptoms started yesterday around noon. They were initially mild but increased over time. She states that she has discomfort in her left lower quadrant primarily. She has associated nausea as well as diarrhea. She reports several episodes of diarrhea in the past several hours. The patient states that she had a temperature yesterday of 100. She is a history of insulin-dependent diabetes and hypertension. The patient states that she started a liquid diet today. Her initial blood pressure was hypertensive. Likely related to her pain. The patient did try some Maalox and Tums for her symptoms that did not help. Her exam reveals some tenderness to the suprapubic and left lower quadrant areas. There is no rebound. CBC and complete metabolic panel were unremarkable and lipase was negative. A CT scan revealed sigmoid diverticulitis. The patient was started on Cipro and Flagyl. She was given her first doses here. She was discharged on these as well as some Zofran. She is felt to be stable for discharge and outpatient follow-up. She did not want narcotic pain medication here. She was given some IV fluids and IV Zofran. She was also given IV Toradol. Medication Reconcilliation Current Medication List: was personally reviewed by me Blood Pressure Screening Patient's blood pressure: Elevated blood pressure Blood pressure disposition: Elevated BP felt to be situational Impression Primary Impression: Sigmoid diverticulitis Scribe Attestation The scribe's documentation has been prepared under my direction and personally reviewed by me in its entirety. I confirm that the note above accurately reflects all work, treatment, procedures, and medical decision making performed by me. Departure Information Dispostion Home / Self-Care Prescriptions Ondasetron Odt (ZOFRAN ODT) 4 Mg Tab 4 MG SL Q6H for Nausea, #10 TAB Prov: Alberto Zamora D.O. 11/27/17 Metronidazole (Flagyl) 500 Mg Tab 500 MG PO TID, #30 TAB Prov: Alberto Zamora D.O. 11/27/17 Ciprofloxacin Hcl (CIPRO) 500 Mg Tab 500 MG PO BID, #20 TAB Prov: Alberto Zamora D.O. 11/27/17 Referrals Lloyd Quick M.D. (PCP) Forms Call Back Authorization, HOME CARE DOCUMENTATION FORM, IMPORTANT VISIT INFORMATION Patient Instructions Diverticulitis Dc, [facility] Additional Instructions Cipro and Flagyl as prescribed for diverticulitis. Zofran: Allow one tablet to dissolve under the tongue every 6 hours as needed for nausea or vomiting. Take Tylenol as needed for pain. Follow-up with your doctor for further care and evaluation in 3-7 days. Return to the emergency department for worsening or new symptoms or any concerns. You have been examined and treated today on an emergency basis only. This is not a substitute for, or an effort to provide, complete comprehensive medical care. It is impossible to recognize and treat all injuries or illnesses in a single emergency department visit. It is therefore important that you follow up closely with your doctor. Call as soon as possible for an appointment.
[2017-11-27] MEDS ORDERED: ZCR40 PO (20:49)
[2017-11-27 21:09] VITALS: BP 139/85; PULSE 71; O2SAT 94
--- NOTE | 2017-11-28 11:20 | Pharmacy Progress Note ---
ED Pharmacist Progress Note Date of Service: November 28, 2017. Received message that Keya from [facility] called regarding cipro/zofran interaction. Dr. Quinn not on service today. Discussed patient with Dr. Schofield who is okay with both prescriptions being filled. Last EKG QTc 413. Called and spoke with Gypsy and let her know okay to fill. She said patient does not want the zofran anyway but would note both were okay to fill.
== END 2017-11-27 21:11 | disposition home or self-care (01) ==
LOC: C.EDB 18:35
DX: K57.32 Diverticulitis of large intestine without perforation or abscess without bleeding (principal); E11.9 Type 2 diabetes mellitus without complications; I10 Essential (primary) hypertension; Z79.82 Long term (current) use of aspirin; Z79.4 Long term (current) use of insulin; Z79.899 Other long term (current) drug therapy; Z88.0 Allergy status to penicillin; Z88.2 Allergy status to sulfonamides; Z88.1 Allergy status to other antibiotic agents; Z83.3 Family history of diabetes mellitus

== ENCOUNTER → 2017-12-06 | Outpatient (CLI) | payer BC ==
[~2017-12-06] MED LIST changes: +ASPI81TA28 PO; +CIPR-255 PO; +LISI-729 PO; +METF-384 PO; +METR-163 PO; +NVLGI7030 SC; +ONDA4TAB10 SL; -SIMV40TA4 PO; +ZCR40 PO
[2017-12-06 14:21] LABS: BLOOD UREA NITROGEN 18 mg/dl (7-18); CALCIUM 8.7 mg/dl (8.5-10.1); CARBON DIOXIDE 27 mmol/L (21-32); CHOLESTEROL 101 mg/dl (0-200); CREATININE 0.99 mg/dl (0.60-1.20); GLUCOSE 200 mg/dl (70-99); LDL CHOLESTEROL (DIRECT) 42 mg/dl; POTASSIUM 4.7 mmol/L (3.5-5.1); SODIUM 137 mmol/L (136-145)
[2017-12-07 06:12] LABS: HEMOGLOBIN A1C 7.4 % (4.5-5.6)
== END | disposition home or self-care (01) ==
LOC: C.LABSPEC 12:25
PROVIDERS: ATTEND Internal Medicine
DX: Z00.00 Encounter for general adult medical examination without abnormal findings (principal); I10 Essential (primary) hypertension; E78.5 Hyperlipidemia, unspecified; E11.9 Type 2 diabetes mellitus without complications

== ENCOUNTER → 2018-03-15 | Outpatient (CLI) | payer BC ==
[~2018-03-15] MED LIST changes: -CIPR-255 PO; -METR-163 PO; -ONDA4TAB10 SL; +OXYC-90 PO; +PRED20TA PO
--- NOTE | 2018-03-15 15:57 | DIAGNOSTIC IMAGING REPORT ---
CAROTID DOPPLER NECK ART CLINICAL HISTORY: 77 years-old Female presenting with TRANSIENT VISION LOSS, Amaurosis fugax. TECHNIQUE: Real-time grayscale and color and spectral Doppler ultrasound imaging of the bilateral carotid arteries was performed. NASCET criteria was used in evaluating this study. COMPARISON: None. FINDINGS: RIGHT: Common carotid artery (CCA): Patent. Peak systolic velocity (PSV) 74 cm/s. Internal carotid artery (ICA): Patent. PSV 56 cm/s. End diastolic velocity (EDV) 13 cm/s. ICA/CCA (systolic) ratio: 0.8. External carotid artery (ECA): Patent. PSV 63 cm/s. LEFT: Common carotid artery (CCA): Patent. PSV 81 cm/s. Internal carotid artery (ICA): Patent. PSV 60 cm/s. EDV 19 cm/s. ICA/CCA (systolic) ratio: 0.7. External carotid artery (ECA): Patent. PSV 77 cm/s. Bilateral antegrade flow within the vertebral arteries. Blood pressure: Brachial: Right: 119/59 mmHg, Left: 103/48 mmHg. Other: Incidental note made of a right thyroid lobe nodule. 2.1 x 1.6 x 1.7 cm lower pole solid isoechoic [id number] nodule with smooth margins. No echogenic foci to suggest calcifications. TI-RADS 3: Mildly suspicious. Reference ranges: Stenosis measurements are compared to reference velocity parameters by the Society of Radiologists in Ultrasound (SRU) consensus and Sonographic NASCET index (S-NASCET). SRU Primary parameters: ICA PSV <125 cm/s = normal or less than 50% stenosis; ICA PSV 125-230 cm/s = 50-69% stenosis; ICA PSV >230 cm/s = greater than or equal to 70% stenosis. SRU Additional parameters: ICA/CCA PSV ratio <2 = normal or less than 50% stenosis; ratio 2-4 = 50-69% stenosis; ratio >4 = greater than or equal to 70% stenosis. ICA EDV <40 cm/s = normal or less than 50% stenosis; ICA EDV 40-100 cm/s = 50-69% stenosis; ICA EDV >100 cm/s = greater than or equal to 70% stenosis. S-NASCET parameters: Deceleration spectral broadening + PSV <125 cm/s = less than 50% stenosis; pansystolic spectral broadening + PSV <125 cm/s = 16-49% stenosis; pansystolic spectral broadening + PSV >125 cm/s + EDV <110 cm/s or ICA/CCA PSV ratio 2-4 = 50-69% stenosis; pansystolic spectral broadening + PSV >270 cm/s OR EDV >110 cm/s OR ICA/CCA PSV ratio >4 = 70-79% stenosis; EDV >140 cm/s = 80-99% stenosis. IMPRESSION: 1. No hemodynamically significant stenosis seen within the carotid arteries. 2. Mildly suspicious 2.1 cm right thyroid lobe nodule. Dedicated thyroid ultrasound recommended. Electronically signed by: Everett Holliday M.D. 03/15/2018 3:55 PM Dictated Date/Time: 03/15/2018 3:52 PM
== END | disposition home or self-care (01) ==
LOC: C.ULTRBC 15:00
PROVIDERS: ATTEND Internal Medicine
DX: G45.3 Amaurosis fugax (principal)

== ENCOUNTER 2022-09-24 19:05 | Inpatient (IN) ==
[2022-09-24] MEDS ORDERED: ALBUT/IPRATROP 3MG/0.5MG NEB 3 ML VIAL NEB STA ×2 (19:20→19:22)
--- NOTE | 2022-09-24 19:24 | Emergency Department Note ---
History of Present Illness General Chief Complaint: Shortness of Breath/Dyspnea Stated Complaint: COUGH, DIFFICULTY BREATHING Time Seen by Provider: 09/24/22 19:12 History of Present Illness Provider Complaint: shortness of breath and cough Onset (ago): day(s) (2) Severity: moderate Consistency/Duration: + progressively worsening Relieved By: + nothing Exacerbated By: + exertion and + coughing Context: + recent travel Associated symptoms: + cough, + wheezing and + chest congestion; no chest pain, no fever, no sputum production or no abdominal pain Home Medications Medication Instructions Recorded Confirmed Type amlodipine 5 mg tablet 5 mg PO DAILY 11/20/18 09/24/22 History insulin aspar prt-insulin aspart 50 unit subcut BID 11/20/18 09/24/22 History 100 unit/mL (70-30) subcutaneous soln (Novolog Mix 70-30 U-100 Insuln) metformin 1,000 mg tablet 1,000 mg PO BID 11/20/18 09/24/22 History simvastatin 40 mg tablet 40 mg PO HS 11/20/18 09/24/22 History aspirin 81 mg tablet,delayed 162 mg PO DAILY 09/24/22 09/24/22 History release furosemide 20 mg tablet 20 mg PO DAILY 09/24/22 09/24/22 History ibuprofen 200 mg tablet (Advil) 400 mg PO DIRECTED PRN Pain 09/24/22 09/24/22 History metoprolol tartrate 25 mg tablet 25 mg PO BID 09/24/22 09/24/22 History trospium 20 mg tablet 20 mg PO BID 09/24/22 09/24/22 History Allergies Allergy/AdvReac Type Severity Reaction Status Date / Time lisinopril Allergy Severe ANGIOEDEMA Verified 09/24/22 20:10 Penicillins Allergy Intermediate RASH Verified 09/24/22 20:10 Sulfa (Sulfonamide Allergy Intermediate RASH Verified 09/24/22 20:10 Antibiotics) Tetracyclines Allergy Intermediate RASH Verified 09/24/22 20:10 Past Med/Surg History Medical History Carpal tunnel syndrome Diabetes mellitus HTN (hypertension) Hyperlipidemia Surgical History No pertinent past surgical history Social History Smoking Status: Never smoker Hx Alcohol Use: No Hx Substance Use: No Communication Ability: Effective Beliefs That Will Affect Care: None Current Living Situation: Spouse Current Living Situation Comment: Feels Safe at Home: Yes Safety Concerns: Feels Safe At This Time Physical Exam Vital Signs: Vital Signs - 24 hr 09/24/22 19:08 09/24/22 19:36 09/24/22 19:37 Temperature 36.9 C Temperature Source Temporal Artery Sc an Pulse Rate 73 Pulse Rate [Left A pical] Pulse Rhythm [Left Apical] Pulse Strength [Le ft Apical] Respiratory Rate 20 Respiratory Effort / Characteristics Respiratory Depth Blood Pressure 147/89 H Blood Pressure [Le ft Arm] Blood Pressure Jessica n 108 Blood Pressure Jessica n [Left Arm] Pulse Oximetry 95 97 97 Oxygen Delivery Me thod Room Air Room Air Room Air Sepsis Recent Feve r Within 48 Hours No Sepsis New/Unexpla ined Change in Men rod Status N/A Sepsis Action Take n by Nursing No Action Required 09/24/22 19:39 09/24/22 19:37 09/24/22 19:40 Temperature Temperature Source Pulse Rate 68 97 H Pulse Rate [Left A pical] 69 Pulse Rhythm [Left Apical] Regular Pulse Strength [Le ft Apical] Normal Respiratory Rate 22 Respiratory Effort / Characteristics Non-Labored Sponta neous Respiratory Depth Normal Blood Pressure Blood Pressure [Le ft Arm] 121/67 Blood Pressure Jessica n Blood Pressure Jessica n [Left Arm] 85 Pulse Oximetry 97 Oxygen Delivery Me thod Room Air Sepsis Recent Feve r Within 48 Hours Sepsis New/Unexpla ined Change in Men rod Status Sepsis Action Take n by Nursing 09/24/22 20:17 09/24/22 20:45 09/24/22 21:17 Temperature Temperature Source Pulse Rate Pulse Rate [Left A pical] 73 77 75 Pulse Rhythm [Left Apical] Regular Regular Pulse Strength [Le ft Apical] Normal Normal Respiratory Rate 22 22 20 Respiratory Effort / Characteristics Short of Breath Non-Labored Sponta neous Respiratory Depth Normal Blood Pressure Blood Pressure [Le ft Arm] 137/66 152/70 H 127/64 Blood Pressure Jessica n Blood Pressure Jessica n [Left Arm] 89 97 85 Pulse Oximetry 97 94 94 Oxygen Delivery Me thod Room Air Room Air Room Air Sepsis Recent Feve r Within 48 Hours Sepsis New/Unexpla ined Change in Men rod Status Sepsis Action Take n by Nursing 09/24/22 22:35 Temperature Temperature Source Pulse Rate Pulse Rate [Left A pical] 75 Pulse Rhythm [Left Apical] Regular Pulse Strength [Le ft Apical] Normal Respiratory Rate 20 Respiratory Effort / Characteristics Non-Labored Sponta neous Respiratory Depth Normal Blood Pressure Blood Pressure [Le ft Arm] 162/54 H Blood Pressure Jessica n Blood Pressure Jessica n [Left Arm] 90 Pulse Oximetry 93 Oxygen Delivery Me thod Room Air Sepsis Recent Feve r Within 48 Hours Sepsis New/Unexpla ined Change in Men rod Status Sepsis Action Take n by Nursing Physical Exam: Physical Exam GENERAL: oriented to person, place, and time. appears well-developed and well- nourished. HENT: Exam performed. - Head: Normocephalic and atraumatic. EYES: Conjunctivae and EOM are normal. Right eye exhibits no discharge. Left eye exhibits no discharge. No scleral icterus. NECK: Normal range of motion. Neck supple. No JVD present. CV: Normal rate, regular rhythm, normal heart sounds and intact distal pulses. There is no peripheral edema. Palpable radial pulses bue. PULM/CHEST: Diffuse expiratory wheezes. ABD: The abdomen is soft. There is no tenderness. NEURO: Motor and sensation grossly intact. SKIN: Skin is warm and dry. He is not diaphoretic. PSYCH: normal mood and affect. Behavior is normal. Judgment and thought content normal. Course Course 1911: The patient was evaluated in room B12. A complete history and physical exam was performed Cardiac monitoring: An order was placed for continuous cardiac monitoring. The monitor shows a rate of 70 with sinus rhythm interpreted by me 1941: Nursing reports that the patient had a 16 beat run of V. tach while on the DuoNeb treatment. Patient was asymptomatic. Breathing treatments stopped. We will continue to monitor. 2044: Vital signs stable. Patient's magnesium level is low. Patient's magnesium will be repleted. We will hold off on giving the patient any more breathing treatments in the emergency department until her magnesium was repleted thinking that the episode of V. tach could have been due to hypomagnesemia in conjunction with DuoNeb treatment. 2199: Vital signs stable. Labs showed an elevated D-dimer level. CTA of the chest was negative for PE. Patient is COVID-negative. [facility]. Administered Medications Albuterol (Albut/Ipratrop 3mg/0.5mg Neb 3 Ml Vial) 3 ml NEB Q4R ALPESH; Protocol Stop: 10/24/22 23:23 Last Admin: 09/24/22 23:52 Dose: 3 ml Documented By: SUE Insulin Aspart (Insulin Aspart Per Unit) 0 units SC ACHS ALPESH Stop: 10/24/22 23:44 Last Admin: 09/25/22 00:09 Dose: 3 units Documented By: SONNY Co-signed By: KS Discontinued Medications Acetaminophen (Acetaminophen 500 Mg Tab) 1,000 mg PO NOW STA Stop: 09/24/22 20:06 Last Admin: 09/24/22 20:17 Dose: Not Given Documented By: ELIAS Albuterol (Albut/Ipratrop 3mg/0.5mg Neb 3 Ml Vial) 3 ml NEB NOW STA; Protocol Stop: 09/24/22 19:21 Last Admin: 09/24/22 19:34 Dose: 3 ml Documented By: ELIAS Albuterol (Albut/Ipratrop 3mg/0.5mg Neb 3 Ml Vial) 3 ml NEB NOW STA; Protocol Stop: 09/24/22 19:23 Last Admin: 09/24/22 20:03 Dose: Not Given Documented By: ELIAS Magnesium Sulfate/Dextrose (Magnesium Sulfate / D5w) 1 gm in 100 mls @ 100 mls/hr IV Q1H [facility] Stop: 09/24/22 22:43 Last Infusion: 09/24/22 23:13 Dose: 0 mls/hr Documented By: Admin: 09/24/22 22:01 Dose: 100 mls/hr Documented By: Infusion: 09/24/22 21:57 Dose: 0 mls/hr Documented By: Admin: 09/24/22 20:53 Dose: 100 mls/hr Documented By: ELIAS Ioversol (Optiray 320 500ml) 89 ml IV ONCE ONE Stop: 09/24/22 20:42 Last Admin: 09/24/22 20:42 Dose: 89 ml Documented By: KEATON Methylprednisolone (Methylprednisolone 125 Mg/2 Ml Vial) 125 mg IV NOW STA Stop: 09/24/22 20:55 Last Admin: 09/24/22 21:08 Dose: 125 mg Documented By: ELIAS Medical Decision Making Laboratory Data Attestation: I reviewed the patient's lab results. 09/24/22 19:26 09/24/22 19:26 Lab Results 09/24/22 09/24/22 09/24/22 Range/Units 19:26 19:26 19:26 WBC 6.12 (4.8-10.8) K/ul RBC 4.33 (4.20-5.40) M/uL Hgb 12.7 (12.0-16.0) g/dl Hct 39.3 (37.0-47.0) % MCV 90.8 (80.0-100.0) fL MCH 29.3 (25.0-34.0) pg MCHC 32.3 (32.0-36.0) g/dL RDW Std Deviation 48.5 H (36.4-46.3) fL RDW Coeff of [place] 14.7 H (11.5-14.5) % Plt Count 194 (130-400) K/uL MPV 9.9 (9.4-12.4) fL Immature Gran % (Auto) 0.2 % Neut % (Auto) 59.4 % Lymph % (Auto) 28.6 % [place] % (Auto) 9.5 % Eos % (Auto) 1.6 % Baso % (Auto) 0.7 % Neut # (Auto) 3.64 (1.40-6.50) K/uL Lymph # (Auto) 1.75 (1.2-3.4) K/uL [place] # (Auto) 0.58 (0.11-0.59) K/uL Eos # (Auto) 0.10 (0-0.50) K/uL Baso # (Auto) 0.04 (0-0.2) K/uL Immature Gran # (Auto) 0.01 (0.01-0.20) K/uL PT 11.6 (9.0-12.0) Seconds INR 1.1 (0.9-1.1) APTT 26.2 (21.0-31.0) Seconds PTT Ratio 1.0 D-Dimer 620 H* (0-500) ug/L FEU VBG pH (7.36-7.41) VBG pCO2 (38-50) mmHg VBG pO2 mmHg VBG HCO3 mmol/L VBG O2 Saturation % VBG Base Excess mEq/L Sodium 138 (136-145) mmol/L Potassium 4.3 (3.5-5.1) mmol/L Chloride 101 (98-107) mmol/L Carbon Dioxide 29 (21-32) mmol/L Anion Gap 8 (3-11) BUN 26 H (6-23) mg/dl Creatinine 1.14 (0.6-1.2) mg/dl Est Cr Clr Drug Dosing Not Reportable Est GFR ( Amer) 52.2 ml/min Est GFR (Non-Af Amer) 45.1 ml/min BUN/Creatinine Ratio 22.8 H (10-20) Glucose 146 H (70-99(Fasting)) mg/dl Calcium 9.2 (8.5-10.1) mg/dl Magnesium 1.4 L (1.7-2.4) mg/dl Total Bilirubin 0.6 (0.2-1.0) mg/dl Direct Bilirubin 0.1 (0-0.2) mg/dl AST 46 H (13-39) U/L ALT 28 (7-52) U/L Alkaline Phosphatase 74 (34-104) U/L Troponin I High Sens 7.6 (0-14) pg/ml B-Natriuretic Peptide (0-100) pg/ml Total Protein 7.7 (6.0-8.3) gm/dl Albumin 4.3 (3.4-5.0) gm/dl Lipase 30 (11-82) U/L SARS-CoV-2 (PCR) (Negative) Influenza Type A (PCR) (Neg) Influenza Type B (PCR) (Neg) RSV (RT-PCR) (Neg) 09/24/22 09/24/22 09/24/22 Range/Units 19:26 19:26 20:10 WBC (4.8-10.8) K/ul RBC (4.20-5.40) M/uL Hgb (12.0-16.0) g/dl Hct (37.0-47.0) % MCV (80.0-100.0) fL MCH (25.0-34.0) pg MCHC (32.0-36.0) g/dL RDW Std Deviation (36.4-46.3) fL RDW Coeff of [place] (11.5-14.5) % Plt Count (130-400) K/uL MPV (9.4-12.4) fL Immature Gran % (Auto) % Neut % (Auto) % Lymph % (Auto) % [place] % (Auto) % Eos % (Auto) % Baso % (Auto) % Neut # (Auto) (1.40-6.50) K/uL Lymph # (Auto) (1.2-3.4) K/uL [place] # (Auto) (0.11-0.59) K/uL Eos # (Auto) (0-0.50) K/uL Baso # (Auto) (0-0.2) K/uL Immature Gran # (Auto) (0.01-0.20) K/uL PT (9.0-12.0) Seconds INR (0.9-1.1) APTT (21.0-31.0) Seconds PTT Ratio D-Dimer Cancelled (0-500) ug/L FEU VBG pH 7.42 H (7.36-7.41) VBG pCO2 46 (38-50) mmHg VBG pO2 31 mmHg VBG HCO3 30 mmol/L VBG O2 Saturation < 60.0 % VBG Base Excess 4.5 mEq/L Sodium (136-145) mmol/L Potassium (3.5-5.1) mmol/L Chloride (98-107) mmol/L Carbon Dioxide (21-32) mmol/L Anion Gap (3-11) BUN (6-23) mg/dl Creatinine (0.6-1.2) mg/dl Est Cr Clr Drug Dosing Est GFR ( Amer) ml/min Est GFR (Non-Af Amer) ml/min BUN/Creatinine Ratio (10-20) Glucose (70-99(Fasting)) mg/dl Calcium (8.5-10.1) mg/dl Magnesium (1.7-2.4) mg/dl Total Bilirubin (0.2-1.0) mg/dl Direct Bilirubin (0-0.2) mg/dl AST (13-39) U/L ALT (7-52) U/L Alkaline Phosphatase (34-104) U/L Troponin I High Sens (0-14) pg/ml B-Natriuretic Peptide (0-100) pg/ml Total Protein (6.0-8.3) gm/dl Albumin (3.4-5.0) gm/dl Lipase (11-82) U/L SARS-CoV-2 (PCR) NEGATIVE (Negative) Influenza Type A (PCR) Negative (Neg) Influenza Type B (PCR) Negative (Neg) RSV (RT-PCR) Negative (Neg) 09/24/22 Range/Units 20:10 WBC (4.8-10.8) K/ul RBC (4.20-5.40) M/uL Hgb (12.0-16.0) g/dl Hct (37.0-47.0) % MCV (80.0-100.0) fL MCH (25.0-34.0) pg MCHC (32.0-36.0) g/dL RDW Std Deviation (36.4-46.3) fL RDW Coeff of [place] (11.5-14.5) % Plt Count (130-400) K/uL MPV (9.4-12.4) fL Immature Gran % (Auto) % Neut % (Auto) % Lymph % (Auto) % [place] % (Auto) % Eos % (Auto) % Baso % (Auto) % Neut # (Auto) (1.40-6.50) K/uL Lymph # (Auto) (1.2-3.4) K/uL [place] # (Auto) (0.11-0.59) K/uL Eos # (Auto) (0-0.50) K/uL Baso # (Auto) (0-0.2) K/uL Immature Gran # (Auto) (0.01-0.20) K/uL PT (9.0-12.0) Seconds INR (0.9-1.1) APTT (21.0-31.0) Seconds PTT Ratio D-Dimer (0-500) ug/L FEU VBG pH (7.36-7.41) VBG pCO2 (38-50) mmHg VBG pO2 mmHg VBG HCO3 mmol/L VBG O2 Saturation % VBG Base Excess mEq/L Sodium (136-145) mmol/L Potassium (3.5-5.1) mmol/L Chloride (98-107) mmol/L Carbon Dioxide (21-32) mmol/L Anion Gap (3-11) BUN (6-23) mg/dl Creatinine (0.6-1.2) mg/dl Est Cr Clr Drug Dosing Est GFR ( Amer) ml/min Est GFR (Non-Af Amer) ml/min BUN/Creatinine Ratio (10-20) Glucose (70-99(Fasting)) mg/dl Calcium (8.5-10.1) mg/dl Magnesium (1.7-2.4) mg/dl Total Bilirubin (0.2-1.0) mg/dl Direct Bilirubin (0-0.2) mg/dl AST (13-39) U/L ALT (7-52) U/L Alkaline Phosphatase (34-104) U/L Troponin I High Sens (0-14) pg/ml B-Natriuretic Peptide 20 (0-100) pg/ml Total Protein (6.0-8.3) gm/dl Albumin (3.4-5.0) gm/dl Lipase (11-82) U/L SARS-CoV-2 (PCR) (Negative) Influenza Type A (PCR) (Neg) Influenza Type B (PCR) (Neg) RSV (RT-PCR) (Neg) Imaging Data Attestation: I personally reviewed and interpreted this imaging study as follows: My Impression: Chest x-ray negative. Airway clear. No pneumothorax. No consolidation. No cardiomegaly or cephalization.. No free air under the diaphragm. No fractures of the skeletal structures. Radiologist's Impression: Chest CTA 09/24/22 20:24 Exam(s): CTA CHEST IV Amt: 89ml EXAM: CT Angiography Chest With Intravenous Contrast CLINICAL HISTORY: Reason for exam: ro PE. TECHNIQUE: Axial computed tomographic angiography images of the chest with intravenous contrast. Automated exposure control was utilized for the study. A dose lowering technique was utilized adhering to the principles of ALARA. MIP reconstructed images were created and reviewed. COMPARISON: No relevant prior studies available. FINDINGS: Pulmonary arteries: Unremarkable. No pulmonary embolism. Aorta: No acute findings. No thoracic aortic aneurysm. Lungs: Unremarkable. No mass. No consolidation. Pleural space: Unremarkable. No significant effusion. No pneumothorax. Heart: Unremarkable. No cardiomegaly. No significant pericardial effusion. No evidence of RV dysfunction. Bones/joints: No acute fracture. No dislocation. Soft tissues: Unremarkable. Lymph nodes: Unremarkable. No enlarged lymph nodes. Liver: Mild cirrhotic nodular morphology of the liver surface. IMPRESSION: No acute findings in the visualized arteries of the chest. Electronically signed by: Matt Vera MD 09/24/22 21:39 PM ECG Data Attestation: I personally reviewed and interpreted this ECG as follows: Interpretation: Sinus rhythm with rate of 74. [place] 172 QRS [address] elevation or ST depression. [facility] Narrative 1911: The patient was evaluated in room B12. A complete history and physical exam was performed Cardiac monitoring: An order was placed for continuous cardiac monitoring. The monitor shows a rate of 70 with sinus rhythm interpreted by me 194: Nursing reports that the patient had a 16 beat run of V. tach while on the DuoNeb treatment. Patient was asymptomatic. Breathing treatments stopped. We will continue to monitor. 2044: Vital signs stable. Patient's magnesium level is low. Patient's magnesium will be repleted. We will hold off on giving the patient any more breathing treatments in the emergency department until her magnesium was replet ed thinking that the episode of V. tach could have been due to hypomagnesemia in conjunction with DuoNeb treatment. 2199: Vital signs stable. Labs showed an elevated D-dimer level. CTA of the chest was negative for PE. Patient is COVID-negative. [facility] team notified. Impression & Plan Acute dyspnea, Hypomagnesemia, Ventricular tachycardia Discharge Plan Visit Data Chief Complaint: Shortness of Breath/Dyspnea Stated Complaint: COUGH, DIFFICULTY BREATHING ED Provider: Jose Antonio Novak Discharge Problem: Acute dyspnea, Hypomagnesemia, Ventricular tachycardia Patient Disposition: Admitted As Inpatient Discharge Instructions Interventions: ED Discharge Assessment Last Done: 09/24/22 23:00
[2022-09-24 19:47] LABS: Basophils # (auto) 0.04 K/uL (0-0.2); Basophils % (auto) 0.7 %; Eosinophils % (auto) 1.6 %; Hematocrit (blood only) 39.3 % (37.0-47.0); Hemoglobin 12.7 g/dl (12.0-16.0); Immature Granulocytes # (auto) 0.01 K/uL (0.01-0.20); Immature Granulocytes % (auto) 0.2 %; Lymphocytes # (auto) 1.75 K/uL (1.2-3.4); Lymphocytes % (auto) 28.6 %; Mean Corpuscular Hemoglobin 29.3 pg (25.0-34.0); Mean Corpuscular Hgb Conc 32.3 g/dL (32.0-36.0); Mean Corpuscular Volume 90.8 fL (80.0-100.0); Mean Platelet Volume 9.9 fL (9.4-12.4); Monocytes # (auto) 0.58 K/uL (0.11-0.59); Monocytes % (auto) 9.5 %; Neutrophils # (auto) 3.64 K/uL (1.40-6.50); Neutrophils % (auto) 59.4 %; Platelet Count 194 K/uL (130-400); RDW Coefficient of Variation 14.7 % (11.5-14.5); RDW Standard Deviation 48.5 fL (36.4-46.3); Red Blood Count 4.33 M/uL (4.20-5.40); White Blood Count 6.12 K/ul (4.8-10.8)
[2022-09-24 20:05] LABS: Alanine Aminotransferase 28 U/L (7-52); Albumin Level 4.3 gm/dl (3.4-5.0); Alkaline Phosphatase 74 U/L (34-104); Anion Gap 8 (3-11); Aspartate Aminotransferase 46 U/L (13-39); BUN Creatinine Ratio 22.8 (10-20); Bilirubin Direct 0.1 mg/dl (0-0.2); Bilirubin,Total 0.6 mg/dl (0.2-1.0); Blood Urea Nitrogen 26 mg/dl (6-23); Calcium 9.2 mg/dl (8.5-10.1); Carbon Dioxide 29 mmol/L (21-32); Chloride 101 mmol/L (98-107); Est GFR (African American) 52.2 ml/min; Est GFR (Non-African American) 45.1 ml/min; Glucose 146 mg/dl (70-99(Fasting)); Lipase 30 U/L (11-82); Potassium 4.3 mmol/L (3.5-5.1); Sodium 138 mmol/L (136-145); Total Protein 7.7 gm/dl (6.0-8.3)
[2022-09-24] MEDS ORDERED: ACETAMINOPHEN 500 MG TAB PO STA (20:05)
[2022-09-24 20:10] LABS: Troponin I High Sensitivity 7.6 pg/ml (0-14)
[2022-09-24 20:15] LABS: INR 1.1 (0.9-1.1); Partial Thromboplastin Time 26.2 Seconds (21.0-31.0); Prothrombin Time 11.6 Seconds (9.0-12.0)
[2022-09-24 20:19] LABS: Influenza A virus by PCR Negative (Neg); Influenza B virus by PCR Negative (Neg); RSV by PCR Negative (Neg); SARS CoV2 RNA(COVID-19) Ceph NEGATIVE (Negative)
[2022-09-24 20:25] LABS: D Dimer 620 ug/L FEU (0-500)
[2022-09-24 20:34] LABS: Magnesium 1.4 mg/dl (1.7-2.4)
[2022-09-24 20:35] LABS: Base Excess VBG 4.5 mEq/L; HCO3 VBG 30 mmol/L; Oxygen Saturation VBG < 60.0 %; PCO2 VBG 46 mmHg (38-50); PO2 VBG 31 mmHg; pH VBG 7.42 (7.36-7.41)
[2022-09-24] MEDS ORDERED: OPTIRAY 320 500ml IV ONE (20:41)
[2022-09-24] MEDS: MAGNESIUM SULFATE / D5W 1 GM/100 ML BAG IV SCH ×2 (20:53→22:01)
[2022-09-24] MEDS ORDERED: methylPREDNISolone 125 MG/2 ML VIAL IV STA (20:54)
--- NOTE | 2022-09-24 21:40 | CT Scan Report ---
Exam(s): CTA CHEST IV Amt: 89ml EXAM: CT Angiography Chest With Intravenous Contrast CLINICAL HISTORY: Reason for exam: ro PE. TECHNIQUE: Axial computed tomographic angiography images of the chest with intravenous contrast. Automated exposure control was utilized for the study. A dose lowering technique was utilized adhering to the principles of ALARA. MIP reconstructed images were created and reviewed. COMPARISON: No relevant prior studies available. FINDINGS: Pulmonary arteries: Unremarkable. No pulmonary embolism. Aorta: No acute findings. No thoracic aortic aneurysm. Lungs: Unremarkable. No mass. No consolidation. Pleural space: Unremarkable. No significant effusion. No pneumothorax. Heart: Unremarkable. No cardiomegaly. No significant pericardial effusion. No evidence of RV dysfunction. Bones/joints: No acute fracture. No dislocation. Soft tissues: Unremarkable. Lymph nodes: Unremarkable. No enlarged lymph nodes. Liver: Mild cirrhotic nodular morphology of the liver surface. IMPRESSION: No acute findings in the visualized arteries of the chest. Electronically signed by: Matt Vera MD 09/24/22 21:39 PM
--- NOTE | 2022-09-24 22:06 | History & Physical Report ---
Date of Service September 24, 2022 Assessment & Plan (1) Acute dyspnea: Plan: -Workup largely negative including CXR/CTA imaging -Differential includes viral URI, airway irritation from "red tide" algae exposure, possible underlying COPD w/ exacerbation -Will treat with duoneb q4, Solumedrol 40 mg IV q8h, incentive spirometry, flutter valve -GI prophylaxis while on steroids -Currently saturating well on RA -Deferring azithromycin for anti-inflammatory effect at present given VT and hypomagnesemia -Would recommend PFT as outpatient after discharge (2) Hypomagnesemia: Plan: -Mg 1.4 on admission -Associated 16 beat run of asymptomatic VT -Mg repleted in ED- 2g IV -Trend BMP, Mg -Telemetry monitoring (3) Ventricular tachycardia: Plan: -As above, 16 beat run of VT noted on monitor- pt asymptomatic and BP stable at that time -Likely due to hypomagnesemia, repletion ongoing -Telemetry monitoring (4) Diabetes mellitus: Plan: -A1C 6.3% 1 year prior in 10/11 -Basal insulin + ISS while in hospital (5) HTN (hypertension): Plan: -BP stable at present -Continue amlodipine and metoprolol (6) Hyperlipidemia: Plan: -Continue simvastatin (7) Overactive bladder: Plan: -Continue trospium (8) Chronic venous stasis: Plan: -No acute hypervolemia at present -Continue furosemide 20 mg PO daily. This is pt's home dose and she states her PCP plans to discontinue this soon Plan FENGI: DM2 diet Code status: Full DVT ppx: Enoxaparin Isolation: None Dispo: Medical/surgical with telemetry History of Present Illness Chief Complaint: Dyspnea Primary Care Provider: Brinda Espinoza MD 82 yo F with PMH DM2, HTN, HLD, previous tobacco use history presenting with dyspnea. Pt was recently in [place] for leisure trip last week and noticed onset of cough on 09/19- persistent, non-productive, associated with rattling in chest and moderate chest tightness. She notes exposure to "red tide" algae during that trip. She did return home via plane on 09/23 and notes onset of severe wheezing yesterday evening. She experienced persistent dyspnea and wheezing since then and finally came to ED today at insistence of her . She denies any fevers, chills, chest pain, abdominal pain or other symptoms. Reports continued cough and wheezing. Pt arrived to ED hemodynamically stable. ED labs significant for D-dimer 620, glucose 146, magnesium 1.4. CXR without acute process, CTA chest negative. CBC, BMP, troponin, lipase, BNP otherwise unremarkable. Pt was given albuterol nebulizer, Solumedrol 125 mg in ED. Nebulizer stopped after pt had asymptomatic 16 beat VT run. Magnesium repletion started with 2g IV. On my evaluation, pt reports feeling better since nebulizer treatment. Denies any new symptoms. She does endorse a 10 year smoking history (1 pack per day) but quit about 40 years prior. Has never had COPD workup done. Allergies Allergy/AdvReac Type Severity Reaction Status Date / Time lisinopril Allergy Severe ANGIOEDEMA Verified 09/24/22 20:10 Penicillins Allergy Intermediate RASH Verified 09/24/22 20:10 Sulfa (Sulfonamide Allergy Intermediate RASH Verified 09/24/22 20:10 Antibiotics) Tetracyclines Allergy Intermediate RASH Verified 09/24/22 20:10 Home Medications Medication Instructions Recorded Confirmed Type amlodipine 5 mg tablet 5 mg PO DAILY 11/20/18 09/24/22 History insulin aspar prt-insulin aspart 50 unit subcut BID 11/20/18 09/24/22 History 100 unit/mL (70-30) subcutaneous soln (Novolog Mix 70-30 U-100 Insuln) metformin 1,000 mg tablet 1,000 mg PO BID 11/20/18 09/24/22 History simvastatin 40 mg tablet 40 mg PO HS 11/20/18 09/24/22 History aspirin 81 mg tablet,delayed 162 mg PO DAILY 09/24/22 09/24/22 History release furosemide 20 mg tablet 20 mg PO DAILY 09/24/22 09/24/22 History ibuprofen 200 mg tablet (Advil) 400 mg PO DIRECTED PRN Pain 09/24/22 09/24/22 History metoprolol tartrate 25 mg tablet 25 mg PO BID 09/24/22 09/24/22 History trospium 20 mg tablet 20 mg PO BID 09/24/22 09/24/22 History budesonide-formoterol HFA 160 1 inh inhalation BID #10.2 grams 09/28/22 Rx mcg-4.5 mcg/actuation aerosol inhaler (Symbicort) ipratropium 0.5 mg-albuterol 3 mg 3 ml inhalation BID PRN SOB or 09/28/22 Rx (2.5 mg base)/3 mL nebulization wheezing #90 mL soln prednisone 10 mg tablet See Taper PO DAILY #30 tabs 09/28/22 Rx Past Med/Surg History Medical History (Updated 09/27/22 @ 11:39 by Kenzie Parker DO) Acute bronchospasm Carpal tunnel syndrome Diabetes mellitus HTN (hypertension) Hyperlipidemia Lower extremity edema Surgical History No pertinent past surgical history Social History Smoking Status: Never smoker Hx Alcohol Use: No Hx Substance Use: No Communication Ability: Effective Beliefs That Will Affect Care: None Current Living Situation: Spouse Current Living Situation Comment: Feels Safe at Home: Yes Assistive Devices: None Review of Systems Review of Systems: Per HPI Physical Exam Physical Exam: General: tired-appearing, intermittently coughing, hoarse voice HEENT: PERRLA, EOMI, moist mucous membranes, trachea midline CV: RRR, normal S1 and S2, no murmurs Resp: reduced inspiratory effort with diffuse expiratory wheezing in all lung law, no focal crackles noted, no increased work of breathing Abd: soft, nontender, nondistended, no guarding or rebound MSK: normal bulk of all 4 extremities Neuro: AOx3, no focal motor or sensory deficits noted Ext: trace peripheral edema with mild discoloration consistent with venous stasis Results & Data Results & Data ([facility]) Vital Signs (Past 12 Hours) Vital Signs Temp Pulse Pulse Resp BP BP Pulse Ox 09/24/22 21:17 75 20 127/64 94 09/24/22 20:45 77 22 152/70 H 94 09/24/22 20:17 73 22 137/66 97 09/24/22 19:40 97 H 09/24/22 19:37 68 09/24/22 19:39 69 22 121/67 97 09/24/22 19:37 97 09/24/22 19:36 97 09/24/22 19:08 36.9 C 73 20 147/89 H 95 O2 Del Method 09/24/22 21:17 Room Air 09/24/22 20:45 Room Air 09/24/22 20:17 Room Air 09/24/22 19:40 09/24/22 19:37 09/24/22 19:39 Room Air 09/24/22 19:37 Room Air 09/24/22 19:36 Room Air 09/24/22 19:08 Room Air Supervising Physician Co-Signing Physician Notes Attending addendum: I have physically seen this patient, have supervised the medical residents activities, and agree with the H&P unless as otherwise noted. Assessment and Plan: Acute shortness of breath- Concern regarding exposure while she was traveling to [place] allergy exposure, as a number of her travel mates has had similar symptoms Treat similarly to a COPD exacerbation Admit to monitored bed Methylprednisolone 40 mg IV every 8 hours Duonebs every 4 hours while awake and every 2 hours when necessary. Flutter valve and incentive spirometry If persistent symptoms may need outpatient pulmonary function tests and/or seeing slot ambassador Hypomagnesemia/asymptomatic V. tach- Magnesium 1.4 on admission Given 2 g of mag sulfate IV in the ED Continue to monitor on telemetry Had a reported 16 beat run of asymptomatic V. tach Repeat magnesium levels in a.m. Order echocardiogram if recurrent Diabetes mellitus- A1c on 10/11 was 6.3 Monitor closely for bump in glucose being on IV steroids Continue baseline dose of insulin 70/30 50 units subcu twice daily Hold metformin Placed on Accu-Cheks with NovoLog SSI Hypertension- Continue aspirin, metoprolol and amlodipine with hold parameters Hyperlipidemia- Continue simvastatin Overactive bladder- Continue trospium Chronic venous stasis- Has been on furosemide 20 mg p.o. daily Monitor fluid status closely while in hospital and treatment Remaining orders and notations as noted Resident Activity Tracking Resident Involvement: Resident Care Provided Care Provided: Adult Hospital Medicine
[2022-09-24] MEDS ORDERED: CARBOHYDRATES FOR HYPOGLYCEMIA PO PRN (23:24)
[2022-09-24] MEDS ORDERED: DEXTROSE 50% 50 ML SYRINGE IV PRN (23:24)
[2022-09-24] MEDS ORDERED: GLUCAGON FOR INJ 1 MG VIAL SQ PRN (23:24)
[2022-09-24] MEDS ORDERED: GLUCOSE 40% GEL 15 GM TUBE PO PRN (23:24)
[2022-09-24] MEDS ORDERED: GLUCOSE 10 TAB/TUBE PO PRN (23:24)
[2022-09-24] MEDS: ALBUT/IPRATROP 3MG/0.5MG NEB 3 ML VIAL NEB SCH (23:52)
[2022-09-25] MEDS: INSULIN ASPART PER UNIT SC SCH ×6 (00:09→23:45)
[2022-09-25] MEDS: TROSPIUM~ORDER AWAITING ACTION SCH ×2 (01:17→09:53)
[2022-09-25] MEDS: ALBUT/IPRATROP 3MG/0.5MG NEB 3 ML VIAL NEB SCH ×5 (02:14→19:32)
[2022-09-25] MEDS ORDERED: methylPREDNISolone 40 MG in SYRINGE 0 ML IV SCH (06:00)
[2022-09-25 06:57] LABS: Hematocrit (blood only) 35.3 % (37.0-47.0); Hemoglobin 11.8 g/dl (12.0-16.0); Mean Corpuscular Hemoglobin 29.8 pg (25.0-34.0); Mean Corpuscular Hgb Conc 33.4 g/dL (32.0-36.0); Mean Corpuscular Volume 89.1 fL (80.0-100.0); Mean Platelet Volume 10.3 fL (9.4-12.4); Platelet Count 148 K/uL (130-400); RDW Coefficient of Variation 14.6 % (11.5-14.5); RDW Standard Deviation 47.4 fL (36.4-46.3); Red Blood Count 3.96 M/uL (4.20-5.40); White Blood Count 3.72 K/ul (4.8-10.8)
[2022-09-25 07:22] LABS: BUN Creatinine Ratio 23.9 (10-20); Calcium 8.7 mg/dl (8.5-10.1); Creatinine Clr Calc Pharmacy 39.6 ml/min; Est GFR (African American) 50.6 ml/min; Est GFR (Non-African American) 43.7 ml/min; Magnesium 1.9 mg/dl (1.7-2.4); Potassium 4.5 mmol/L (3.5-5.1)
--- NOTE | 2022-09-25 07:26 | XRay Report ---
TWO VIEW CHEST CLINICAL HISTORY: Dyspnea. FINDINGS: PA and lateral chest radiographs are compared to study dated 02/01/2015. The heart is mildly enlarged noting atherosclerotic calcification of the thoracic aorta. Chronic interstitial thickening is similar to previous. There is bibasilar scarring/atelectasis. No airspace consolidation or large pleural effusion is identified. There is no pneumothorax. The skeletal structures are osteopenic. The bony thorax appears intact. IMPRESSION: No active disease in the chest. ACT 112: Negative or not required by law. Electronically signed by: Jesus Foley M.D. 09/25/2022 7:24 AM
[2022-09-25] MEDS: ACETAMINOPHEN 325 MG TAB PO PRN ×2 (08:20→20:22)
[2022-09-25] MEDS: FUROSEMIDE 20 MG TAB PO SCH (08:21)
[2022-09-25] MEDS: amLODIPine BESYLATE 5 MG TAB PO SCH (08:21)
[2022-09-25] MEDS: METOPROLOL TARTRATE 25 MG TAB PO SCH ×2 (08:21→20:17)
[2022-09-25] MEDS: MAGNESIUM OXIDE 400 MG TAB PO SCH (08:22)
[2022-09-25] MEDS: ENOXAPARIN INJ 40 MG/0.4 ML SYR SQ SCH (08:22)
--- NOTE | 2022-09-25 08:42 | Hospitalist Progress Note ---
Date of Service September 25, 2022 Assessment & Plan (1) Dyspnea: Plan: Presented with dyspnea feeling like she was going to pass out, with hypoxia to 88% on admission, improved to 91-92% on RA with rest. Diffuse wheezing throughout, and vazquez shave at least a 10 year smoking history, possibly some underlying asthma component as well? Symptoms improving, though slowly, with IV steroids and DuoNebs. Continue Solu- Medrol 40mg q12h with DuoNebs q6h scheduled and every 2 hours as needed for wheezing/SOB. Azithromycin ordered for anti-inflammatory effect. CTA without evidence of pneumonia, fluid overload, PE. Echo ordered to eval for valvular abnormality, no significant findings noted. Consider Pulm consult if symptoms not continuing to improve. PFTs in outpatient setting to further evaluate for obstructive/restrictive lung disease. (2) Wheeze: Plan: see above (3) Diabetes mellitus: Plan: History of, on metformin and NovoLog 70/30 50u BID. Glycemic management consulted given IV steroids and elevated BSGs up to 400-500s this AM. No indication for insulin gtt at this time. (4) Blood glucose elevated: Plan: see above Plan Dyspnea, unknown cause Echo ordered to eval for CHF and valvular dysfunction PT and OT Admission and Anticipated Discharge Date Admission Date: September 24, 2022 Subjective No overnight events. Still wheezy, reports breathing is somewhat better but still not back to normal. Review of Systems Review of Systems: All systems reviewed & are unremarkable except as noted in Subjective Physical Exam Constitutional: WD/WN, vitals as above Respiratory: diffuse wheezing throughout lung law, no crackles or decreased breath sounds Cardiovascular: RRR, no murmur, no edema Gastrointestinal (Abdomen): normal bowel sounds, soft, nontender, no hepatosplenomegaly Skin: no rashes, warm and dry Psychiatric: A+Ox3, euthymic affect Results & Data Results & Data ([facility]) Vital Signs (Past 12 Hours) Vital Signs Temp Pulse Pulse Pulse Resp BP BP 09/25/22 07:52 66 09/25/22 07:51 36.5 C 98 H 20 149/65 H 09/25/22 07:05 83 18 09/24/22 23:26 76 09/25/22 04:13 36.7 C 86 18 136/70 09/25/22 02:17 84 16 09/24/22 23:36 09/24/22 23:24 09/24/22 23:54 75 14 09/24/22 23:36 36.8 C 75 20 152/84 H 09/24/22 22:35 75 20 162/54 H 09/24/22 21:17 75 20 127/64 09/24/22 20:45 77 22 152/70 H Pulse Ox Pulse Ox O2 Del Method O2 Del Method FiO2 09/25/22 07:52 09/25/22 07:51 92 Room Air 09/25/22 07:05 95 Room Air 09/24/22 23:26 09/25/22 04:13 95 Room Air 09/25/22 02:17 Room Air 94 09/24/22 23:36 Room Air 09/24/22 23:24 95 Room Air 09/24/22 23:54 Room Air 95 09/24/22 23:36 95 Room Air 09/24/22 22:35 93 Room Air 09/24/22 21:17 94 Room Air 09/24/22 20:45 94 Room Air PG Care Time/CCT Total # of Minutes Spent Total Time Spent with Patient: Total time spent is greater than 50% in coordination of care (as documented) at patient's floor/unit and/or counseling patient: Coding Level of Care Code 29413 SUB INP/OBS CARE 2/35MIN Diagnoses Dyspnea R06.00 Wheeze R06.2 Diabetes mellitus E11.9 Blood glucose elevated R73.9
[2022-09-25] MEDS ORDERED: LANTUS PER UNIT CHARGE SQ SCH ×2 (09:00)
[2022-09-25] MEDS ORDERED: PHARMACY GLYCEMIC MGMT CONSULT PRN (09:43)
[2022-09-25] MEDS ORDERED: INSULIN HUMAN REGULAR PER UNIT 10 UNITS in SYRINGE 9.9 ML IV ONE (10:15)
[2022-09-25] MEDS ORDERED: PANTOprazole 40 MG in SYRINGE 0 ML IV SCH (11:00)
--- NOTE | 2022-09-25 11:09 | XCELERA ---
[id number]
--- NOTE | 2022-09-25 13:48 | Pharmacy Report ---
Pharmacy Glycemic Short Note 2 - Date of Service September 25, 2022 - Glycemic Short BSG Results (Last 24 hours): 09/24/22 09/24/22 09/25/22 19:26 23:26 06:08 Glucose 146 H 401 H* POC Glucose 212 H 09/25/22 09/25/22 09/25/22 07:31 07:32 09:39 Glucose POC Glucose 400 H* 390 H* 493 H* 09/25/22 09/25/22 09/25/22 09:40 09:59 11:21 Glucose 502 H* POC Glucose 500 H* 383 H* OUTPATIENT ANTIDIABETIC REGIMEN: * Novolog 70/30 - 50 units BID * HbA1C ordered ASSESSMENT: * Ms Henderson is an 82 y/o F with a PMH of T2DM who presents with SOB. * She was given Solu-Medrol 125 mg @ 2108 on 09/24/22. Then she was subsequently started on Solu-Medrol 40 mg IV q12 @. * Patient's BSG on admission was 212 mg/dL. However by AM of 09/25/22 BSG was 400 mg/dL. * Patient initially given 40 units of Lantus plus 18 units of Novolog for BSG of 400 mg/dL. Patient's recheck of BSG was 500 mg/dL about 1.5 hours after Novolog given. At this time pharmacy consulted. * Novolin R 10 units IV x 1 given. Elected to not provide more Novolog coverage since > 1 hour since food consumed + < 2 hours since last Novolog given. There is significant risk for stacking. * Lunch BSG was 383 mg/dL indicating that patient was starting to trend downwards. Novolog already tightened to weight-based stress of 3. * Lantus 20 units with dinner to equal total daily dose of 60 units today. * Overnight checks to ensure adequate coverage. PLAN FOR INPATIENT GLYCEMIC CONTROL: * Hold outpatient oral diabetes medications * Basal insulin * Lantus 20 units SQ with dinner then re-evaluate tomorrow morning * Bolus insulin * NovoLog per scale ACHS or Q6hrs while NPO * Goal Range: Low 110 mg/dL - High 140 mg/dL * Correction Factor: 15 mg/dL/unit * Nutritional / Prandial insulin per carb ratio of 1 unit per 4 grams CHO consumed
[2022-09-25] MEDS ORDERED: LANTUS PER UNIT CHARGE SQ ONE (16:30)
[2022-09-25] MEDS: methylPREDNISolone 40 MG in SYRINGE 0 ML IV SCH (16:53)
[2022-09-25] MEDS: AZITHROMYCIN 500 MG in DEXTROSE 5% 250 ML IV SCH (18:16)
[2022-09-25] MEDS: TROSPIUM 20 MG PO SCH (20:17)
[2022-09-25] MEDS: SIMVASTATIN 40 MG TAB PO SCH (20:17)
[2022-09-26] MEDS: INSULIN ASPART PER UNIT SC SCH ×6 (03:41→23:54)
--- NOTE | 2022-09-26 05:15 | Electrocardiogram Report ---
Test Reason : Blood Pressure : / mmHG Vent. Rate : 074 BPM Atrial Rate : 074 BPM P-R Int : 172 ms QRS Dur : 072 ms QT Int : 396 ms P-R-T Axes : 085 042 077 degrees QTc Int : 439 ms Normal sinus rhythm Low voltage QRS Nonspecific ST abnormality Abnormal ECG When compared with ECG of 01-DEC-2016 14:04, No significant change was found Confirmed by Jean Carmona ([id number]) on 09/26/2022 5:14:53 AM Referred By: REFERRED SELF Confirmed By:Jean Carmona
[2022-09-26] MEDS: methylPREDNISolone 40 MG in SYRINGE 0 ML IV SCH ×3 (06:25→21:02)
[2022-09-26 06:44] LABS: Basophils # (auto) 0.01 K/uL (0-0.2); Basophils % (auto) 0.1 %; Hematocrit (blood only) 33.3 % (37.0-47.0); Hemoglobin 11.3 g/dl (12.0-16.0); Immature Granulocytes # (auto) 0.03 K/uL (0.01-0.20); Immature Granulocytes % (auto) 0.4 %; Lymphocytes # (auto) 0.71 K/uL (1.2-3.4); Lymphocytes % (auto) 9.4 %; Mean Corpuscular Hemoglobin 29.8 pg (25.0-34.0); Mean Corpuscular Hgb Conc 33.9 g/dL (32.0-36.0); Mean Corpuscular Volume 87.9 fL (80.0-100.0); Mean Platelet Volume 10.1 fL (9.4-12.4); Monocytes # (auto) 0.43 K/uL (0.11-0.59); Monocytes % (auto) 5.7 %; Neutrophils # (auto) 6.35 K/uL (1.40-6.50); Neutrophils % (auto) 84.4 %; Platelet Count 155 K/uL (130-400); RDW Coefficient of Variation 14.7 % (11.5-14.5); RDW Standard Deviation 46.9 fL (36.4-46.3); Red Blood Count 3.79 M/uL (4.20-5.40); White Blood Count 7.53 K/ul (4.8-10.8)
[2022-09-26] MEDS: ALBUT/IPRATROP 3MG/0.5MG NEB 3 ML VIAL NEB SCH ×4 (06:55→19:41)
[2022-09-26 07:04] LABS: BUN Creatinine Ratio 27.9 (10-20); Calcium 8.6 mg/dl (8.5-10.1); Est GFR (African American) 48.1 ml/min; Est GFR (Non-African American) 41.5 ml/min; Potassium 5.1 mmol/L (3.5-5.1)
[2022-09-26 07:45] LABS: Estimated Average Glucose 166 mg/dl; Hemoglobin A1C 7.4 % (4.5-5.6)
[2022-09-26] MEDS ORDERED: INSULIN HUMAN NPH SC ONE ×2 (08:00→16:30)
[2022-09-26] MEDS: MAGNESIUM OXIDE 400 MG TAB PO SCH (08:08)
[2022-09-26] MEDS: amLODIPine BESYLATE 5 MG TAB PO SCH (08:08)
[2022-09-26] MEDS: METOPROLOL TARTRATE 25 MG TAB PO SCH ×2 (08:08→21:02)
[2022-09-26] MEDS: TROSPIUM 20 MG PO SCH ×2 (08:09→21:02)
[2022-09-26] MEDS: FUROSEMIDE 20 MG TAB PO SCH (08:09)
[2022-09-26] MEDS: ENOXAPARIN INJ 40 MG/0.4 ML SYR SQ SCH (08:09)
[2022-09-26] MEDS: AZITHROMYCIN 500 MG in DEXTROSE 5% 250 ML IV SCH (08:19)
[2022-09-26] MEDS: ALBUT/IPRATROP 3MG/0.5MG NEB 3 ML VIAL NEB PRN (09:48)
[2022-09-26] MEDS ORDERED: FUROSEMIDE INJ 20 MG/2 ML VIAL IV ONE ×2 (09:54→09:55)
[2022-09-26] MEDS ORDERED: LORazepam 2 MG/1 ML VIAL IV STA (10:02)
[2022-09-26] MEDS: MAGNESIUM SULFATE / D5W 1 GM/100 ML BAG IV SCH ×2 (10:09→12:33)
--- NOTE | 2022-09-26 10:25 | Pulmonary Consultation ---
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 Continue with IV Solu-Medrol for today and transition over to oral prednisone starting tomorrow. Would recommend a total course of 10 days. Give a dose of 2 g IV magnesium and 20 mg of IV Lasix now. VBG pending although previous VBG was not suggestive of hypercapnia.. Recommend outpatient sleep medicine consultation to evaluate for sleep disordered breathing. Transition maintenance inhaler while inpatient to nebulized budesonide and formoterol. Would benefit from outpatient PFTs and fractional exhaled nitric oxide testing. Would recommend that she be discharged home when ready on high-dose ICS/LABA inhaler such as Symbicort with a spacer. Additionally, I suspect a significant anxiety component. A low-dose trial of benzodiazepine may be warranted if symptoms recur. Patient discussed with multiple disciplines at bedside including nursing staff, hospitalist service and respiratory therapist. Patient in agreement with plan of care. History of Present Illness Reason for Consultation: Bronchospasm Attending Physician: Kenzie Parker, History of Present Illness Patient's history reviewed through the electronic medical record, discussion with the nursing staff, discussion with hospitalist and direct interview of the patient. 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 She traveled to [place] in late August and was exposed to "red tide algae" during that trip. She relates that she started having shortness of breath several days ago with wheezing and cough. She currently denies any chest pain, fevers or chills. She does endorse tightness in her chest. She reports that her shortness of breath today started abruptly. When examined, I am able to distract her and her shortness of breath does seem to improve. I encouraged her to use pursed lip breathing which helped improved her symptoms. She is currently receiving a DuoNeb which does help her symptoms. She is currently receiving IV Solu-Medrol, Breo and azithromycin. Her admission labs did not reveal any significant eosinophilia. There is no evidence of leukocytosis. I personally reviewed her chest CTA from 09/24/2021 which was essentially unremarkable. Patient does endorse a history of snoring, but denies any history of sleep apne a. She notes that she has 2 dogs at home. She denies any history of allergies. She denies any previous history of asthma or formal diagnosis of pulmonary disease. VBG 09/24/2022 revealed a pH of 7.42 and a PCO2 of 46. Allergies Allergy/AdvReac Type Severity Reaction Status Date / Time lisinopril Allergy Severe ANGIOEDEMA Verified 09/24/22 20:10 Penicillins Allergy Intermediate RASH Verified 09/24/22 20:10 Sulfa (Sulfonamide Allergy Intermediate RASH Verified 09/24/22 20:10 Antibiotics) Tetracyclines Allergy Intermediate RASH Verified 09/24/22 20:10 Home Medications Medication Instructions Recorded Confirmed Type amlodipine 5 mg tablet 5 mg PO DAILY 11/20/18 09/24/22 History insulin aspar prt-insulin aspart 50 unit subcut BID 11/20/18 09/24/22 History 100 unit/mL (70-30) subcutaneous soln (Novolog Mix 70-30 U-100 Insuln) metformin 1,000 mg tablet 1,000 mg PO BID 11/20/18 09/24/22 History simvastatin 40 mg tablet 40 mg PO HS 11/20/18 09/24/22 History aspirin 81 mg tablet,delayed 162 mg PO DAILY 09/24/22 09/24/22 History release furosemide 20 mg tablet 20 mg PO DAILY 09/24/22 09/24/22 History ibuprofen 200 mg tablet (Advil) 400 mg PO DIRECTED PRN Pain 09/24/22 09/24/22 History metoprolol tartrate 25 mg tablet 25 mg PO BID 09/24/22 09/24/22 History trospium 20 mg tablet 20 mg PO BID 09/24/22 09/24/22 History Patient History Medical History (Updated 09/26/22 @ 10:23 by Manuel Strauss MD) Acute bronchospasm Carpal tunnel syndrome Diabetes mellitus HTN (hypertension) Hyperlipidemia Lower extremity edema Surgical History No pertinent past surgical history Social History Smoking Status: Never smoker Hx Alcohol Use: No Hx Substance Use: No Communication Ability: Effective Beliefs That Will Affect Care: None Current Living Situation: Spouse Current Living Situation Comment: Feels Safe at Home: Yes Safety Concerns: Feels Safe At This Time Assistive Devices: None Review of Systems Review of Systems: All systems reviewed & are unremarkable except as noted in HPI & below Physical Exam Physical Exam: Constitutional: Patient appears to be of their stated age. She is obese. She has a mild distress, but is distractible and her anxiety seems to improve when you reassure her. Eyes: Pupils are equal round and reactive to light. Conjunctivae are normal. Anicteric sclera. Ears nose, mouth and throat: Deferred. Neck: Trachea is midline. No significant stridor. Respiratory: Mild expiratory wheeze. Mild tachypnea. No crackles. Cardiovascular: Regular rate and rhythm. No murmurs. 1+ edema in the lower extremities bilaterally. Gastrointestinal: Normal bowel sounds, soft, nontender and nondistended. No hepatosplenomegaly noted. Musculoskeletal: No cyanosis. Patient is able to move all extremities. Strength is 5 out of 5 in the upper and lower extremities. Skin: No rashes, warm dry and intact. Neurologic: No obvious focal neurological deficits seen. Psychiatric: Alert and oriented x3 with an anxious mood. Results & Data Results & Data ([facility]) Vital Signs (Past 12 Hours) Vital Signs Temp Pulse Pulse Pulse Resp BP Pulse Ox 09/26/22 09:48 84 28 H 93 09/26/22 07:15 36.4 C L 77 22 144/76 H 95 09/26/22 06:56 78 18 94 09/26/22 03:41 36.8 C 72 20 133/77 94 09/26/22 00:07 74 09/26/22 00:01 76 18 94 09/25/22 22:41 36.9 C 70 20 120/73 92 O2 Del Method 09/26/22 09:48 Room Air 09/26/22 07:15 Room Air 09/26/22 06:56 Room Air 09/26/22 03:41 Room Air 09/26/22 00:07 09/26/22 00:01 Room Air 09/25/22 22:41 Room Air PG Care Time/CCT Total # of Minutes Spent Total Time Spent with Patient: Total time spent is greater than 50% in coordination of care (as documented) at patient's floor/unit and/or counseling patient: Coding Level of Care Code 35529 INT INP/OBS CARE MIN Diagnoses Acute bronchospasm J98.01 Acute dyspnea R06.00 Lower extremity edema R60.0
[2022-09-26 10:27] LABS: Base Excess VBG -2.2 mEq/L; HCO3 VBG 23 mmol/L; PCO2 VBG 41 mmHg (38-50); PO2 VBG 62 mmHg; pH VBG 7.36 (7.36-7.41)
[2022-09-26] MEDS: BUDESONIDE 0.5 MG/2 ML VIAL (PULMICORT) NEB SCH ×2 (10:50→19:39)
[2022-09-26] MEDS: FORMOTEROL 20 MCG/2 ML VIAL NEB SCH ×2 (10:50→19:39)
[2022-09-26] MEDS ORDERED: INSULIN HUMAN REGULAR PER UNIT 10 UNITS in SYRINGE 9.9 ML IV ONE (11:30)
[2022-09-26] MEDS: PANTOprazole 40 MG TAB PO SCH (12:33)
--- NOTE | 2022-09-26 13:47 | Hospitalist Progress Note ---
Date of Service September 26, 2022 Assessment & Plan (1) Acute bronchospasm: Plan: Presented with dyspnea feeling like she was going to pass out, with hypoxia to 88% on admission, improved to 91-92% on RA with rest. Patient does report having recently traveled to [place] and being exposed to "red tide algae" during that trip. CTA without evidence of pneumonia, fluid overload, PE. Diffuse wheezing throughout, and does have at least a 10 year smoking history, possibly some underlying asthma component as well. With worsening of bronchospasm this morning, also with some evidence of anxiety during time of my evaluation. Benzodiazepine as needed for anxiety ordered. Continue IV steroids with transition to p.o. tomorrow, scheduled DuoNebs. Azithromycin ordered for anti-inflammatory effect. Echo ordered to evaluate for valvular abnormality/CHF, no significant findings noted. Pulmonology consulted today given worsening of bronchospasm, given magnesium sulfate 2 g IV, started on budesonide/formoterol with plan to discharge on Symbicort with spacer. 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 PFTs, fractional exhaled nitric oxide texting, sleep study recommended for outpatient to evaluate suspected chronic underlying lung pathology further. (2) Dyspnea: Plan: See above (3) Wheeze: Plan: see above (4) Diabetes mellitus: Plan: History of, on metformin and NovoLog 70/30 50u BID. A1c 7.4% on 09/26. Glycemic management consulted given IV steroids and elevated BSGs up to 400- 500s, has proved difficult to control during admission, will continue to adjust insulins as necessary. No indication for insulin gtt at this time. (5) Blood glucose elevated: Plan: see above (6) HTN (hypertension): Plan: Continue amlodipine, daily p.o. furosemide. BP normotensive. Plan Dyspnea, suspected bronchospasm (asthma/COPD/LILIA/OHS multifactorial?) PT and OT when able and feeling better with regard to breathing Enoxaparin for DVT prophylaxis Admission and Anticipated Discharge Date Admission Date: September 24, 2022 Subjective Patient without any overnight events, however this morning with worsening of wheezing and sensation of dyspnea while at rest, wheezy, evaluated at bedside with pulmonology and with respiratory therapy. Given DuoNeb, 20 mg IV Lasix, and small dose IV Ativan with improvement in symptoms. Also given 2 g of magnesium. No complaints of chest pain, abdominal pain. Review of Systems Review of Systems: All systems reviewed & are unremarkable except as noted in Subjective Physical Exam Constitutional: WD/WN, vitals as above Respiratory: Diffuse expiratory wheezes Cardiovascular: RRR, no murmur, no edema Gastrointestinal (Abdomen): normal bowel sounds, soft, nontender, no hepatosplenomegaly Skin: no rashes, warm and dry Psychiatric: Orientation: alert and oriented x 3 Affect: + anxious affect Results & Data Results & Data ([facility]) Vital Signs (Past 12 Hours) Vital Signs Temp Pulse Pulse Pulse Resp BP Pulse Ox 09/26/22 13:13 76 16 96 09/26/22 12:00 09/26/22 11:42 36.8 C 80 20 133/60 95 09/26/22 08:00 68 09/26/22 10:50 77 18 97 09/26/22 09:48 84 28 H 93 09/26/22 07:15 36.4 C L 77 22 144/76 H 95 09/26/22 06:56 78 18 94 09/26/22 03:41 36.8 C 72 20 133/77 94 O2 Del Method O2 Flow Rate 09/26/22 13:13 Nasal Cannula 2 09/26/22 12:00 Nasal Cannula 3 09/26/22 11:42 Nasal Cannula 2 09/26/22 08:00 09/26/22 10:50 Nasal Cannula 3 09/26/22 09:48 Room Air 09/26/22 07:15 Room Air 09/26/22 06:56 Room Air 09/26/22 03:41 Room Air PG Care Time/CCT Total # of Minutes Spent Total Time Spent with Patient: Total time spent is greater than 50% in coordination of care (as documented) at patient's floor/unit and/or counseling patient: Coding Level of Care Code 87897 SUB INP/OBS CARE 3/50MIN Diagnoses Acute bronchospasm J98.01 Dyspnea R06.00 Wheeze R06.2 Diabetes mellitus E11.9 Blood glucose elevated R73.9 HTN (hypertension) I10
--- NOTE | 2022-09-26 14:01 | Pharmacy Report ---
Pharmacy Glycemic Short Note 2 - Date of Service September 26, 2022 - Glycemic Short BSG Results (Last 24 hours): 09/25/22 09/25/22 09/25/22 16:12 19:49 19:51 Glucose POC Glucose 299 H 321 H* 314 H* 09/25/22 09/26/22 09/26/22 23:41 03:39 06:20 Glucose 263 H POC Glucose 287 H 284 H 09/26/22 09/26/22 09/26/22 07:16 10:59 11:01 Glucose POC Glucose 248 H 419 H* 494 H* 09/26/22 11:20 Glucose 460 H* POC Glucose OUTPATIENT ANTIDIABETIC REGIMEN: * Novolog 70/30 - 50 units BID * HbA1C ordered ASSESSMENT: * BSGs yesterday were 400/[id number] and overnight were 287-284 mg/dL. * Patient received 139 units of insulin (60 units of basal and 89 units of bolus) + an additional 10 units at midnight and 0400. * Fasting today was 248 mg/dL. * This indicates that 80 units of basal is not sufficient (60 units of Lantus + 20 units of bolus overnight). Therefore will increase basal by 20% to 100 units daily. Switching to NPH to allow for easier transition to home regimen. NPH is typically divided 70-30 ... so will give 70 units this morning and 30 units in the evening. * For Novolog, BSGs remained somewhat stable throughout the whole day and night. Tighten both CF and CR significantly. * For Lunch BSG > 400 mg/dL, gave additional 10 unit IV bolus (K = 5.1 today). * Overnight checks to ensure adequate coverage. BACKGROUND * Ms Henderson is an 82 y/o F with a PMH of T2DM who presents with SOB. * She was given Solu-Medrol 125 mg @ 2108 on 09/24/22. Then she was subsequently started on Solu-Medrol 40 mg IV q12 @,18. * Patient's BSG on admission was 212 mg/dL. However by AM of 09/25/22 BSG was 400 mg/dL. * Patient initially given 40 units of Lantus plus 18 units of Novolog for BSG of 400 mg/dL. Patient's recheck of BSG was 500 mg/dL about 1.5 hours after Novolog given. At this time pharmacy consulted. * Novolin R 10 units IV x 1 given. Elected to not provide more Novolog coverage since > 1 hour since food consumed + < 2 hours since last Novolog given. There is significant risk for stacking. * Lunch BSG was 383 mg/dL indicating that patient was starting to trend downwards. Novolog already tightened to weight-based stress of 3. * Lantus 20 units with dinner to equal total daily dose of 60 units today. * Overnight checks to ensure adequate coverage. PLAN FOR INPATIENT GLYCEMIC CONTROL: * Hold outpatient oral diabetes medications * Basal insulin * NPH 70 units in the morning and 30 units in the evening * Bolus insulin * NovoLog per scale ACHS or Q6hrs while NPO * Goal Range: Low 110 mg/dL - High 140 mg/dL * Correction Factor: 10 mg/dL/unit * Nutritional / Prandial insulin per carb ratio of 1 unit per 2 grams CHO consumed
[2022-09-26] MEDS ORDERED: LORazepam 2 MG/1 ML VIAL IV PRN (17:05)
[2022-09-26] MEDS ORDERED: COUGH DROP (SUGAR FREE) LOZ 24 LOZ/1 BOX BUCCAL STA (17:07)
[2022-09-26] MEDS ORDERED: BUDESONIDE 0.5 MG/2 ML VIAL (PULMICORT) NEB SCH (19:00)
[2022-09-26] MEDS ORDERED: CHLORASEPTIC 1.4% SOLN 180 ML BTL MT PRN (19:39)
[2022-09-26] MEDS: ACETAMINOPHEN 325 MG TAB PO PRN (21:00)
[2022-09-26] MEDS ORDERED: FORMOTEROL 20 MCG/2 ML VIAL NEB SCH (21:00)
[2022-09-26] MEDS: SIMVASTATIN 40 MG TAB PO SCH (21:02)
[2022-09-27] MEDS: ALBUT/IPRATROP 3MG/0.5MG NEB 3 ML VIAL NEB SCH ×4 (00:03→19:17)
[2022-09-27] MEDS: INSULIN ASPART PER UNIT SC SCH ×5 (04:07→20:15)
[2022-09-27 06:51] LABS: Hematocrit (blood only) 35.6 % (37.0-47.0); Hemoglobin 11.7 g/dl (12.0-16.0); Mean Corpuscular Hemoglobin 29.3 pg (25.0-34.0); Mean Corpuscular Hgb Conc 32.9 g/dL (32.0-36.0); Mean Corpuscular Volume 89.2 fL (80.0-100.0); Platelet Count 170 K/uL (130-400); RDW Coefficient of Variation 14.7 % (11.5-14.5); RDW Standard Deviation 47.7 fL (36.4-46.3); Red Blood Count 3.99 M/uL (4.20-5.40); White Blood Count 8.35 K/ul (4.8-10.8)
[2022-09-27 07:10] LABS: BUN Creatinine Ratio 30.4 (10-20); Calcium 8.3 mg/dl (8.5-10.1); Creatinine Clr Calc Pharmacy 34.6 ml/min; Est GFR (African American) 42.6 ml/min; Est GFR (Non-African American) 36.7 ml/min; Potassium 4.8 mmol/L (3.5-5.1)
[2022-09-27] MEDS: FORMOTEROL 20 MCG/2 ML VIAL NEB SCH ×2 (07:17→19:15)
[2022-09-27] MEDS: BUDESONIDE 0.5 MG/2 ML VIAL (PULMICORT) NEB SCH ×2 (07:18→19:15)
[2022-09-27] MEDS ORDERED: INSULIN HUMAN NPH SC ONE ×2 (08:00)
[2022-09-27] MEDS: predniSONE 20 MG TAB PO SCH (08:18)
[2022-09-27] MEDS: METOPROLOL TARTRATE 25 MG TAB PO SCH ×2 (08:18→20:21)
[2022-09-27] MEDS: amLODIPine BESYLATE 5 MG TAB PO SCH (08:18)
[2022-09-27] MEDS: MAGNESIUM OXIDE 400 MG TAB PO SCH (08:18)
[2022-09-27] MEDS: TROSPIUM 20 MG PO SCH ×2 (08:19→20:22)
[2022-09-27] MEDS: ENOXAPARIN INJ 40 MG/0.4 ML SYR SQ SCH (08:19)
[2022-09-27] MEDS: AZITHROMYCIN 500 MG in DEXTROSE 5% 250 ML IV SCH (08:36)
[2022-09-27] MEDS: ALBUT/IPRATROP 3MG/0.5MG NEB 3 ML VIAL NEB PRN (10:45)
--- NOTE | 2022-09-27 11:41 | Hospitalist Progress Note ---
Date of Service September 27, 2022 Assessment & Plan (1) Acute bronchospasm: Plan: Presented with dyspnea feeling like she was going to pass out, with hypoxia to 88% on admission, improved to 91-92% on RA with rest. Patient does report having recently traveled to [place] and being exposed to "red tide algae" during that trip. CTA without evidence of pneumonia, fluid overload, PE. Does have at least a 10 year smoking history, possibly some underlying asthma component as well. With worsening of bronchospasm 09/26, also with some evidence of anxiety at that time as well. Ativan 0.25mg IV q12h as needed for anxiety ordered. Transitioned to p.o. steroid 09/27, continue scheduled and prn DuoNebs, scheduled budesonide/formoterol. Plan to discharge on Symbicort with spacer. Azithromycin ordered for anti-inflammatory effect, completes 09/28. Echo ordered to evaluate for valvular abnormality/CHF, no significant findings noted. Pulmonology consulted and appreciate recommendations. PFTs, fractional exhaled nitric oxide texting, sleep study recommended when outpatient to evaluate suspected chronic underlying lung pathology further. (2) Dyspnea: Plan: See above (3) Wheeze: Plan: see above (4) Diabetes mellitus: Plan: History of, on metformin and NovoLog 70/30 50u BID at home. A1c 7.4% on 09/26. Glycemic management consulted given IV steroids and elevated BSGs up to 400- 500s, has proved difficult to control during admission, BSGs 200-300s today, anticipate improvement with decreasing steroids. BSGs better today. (5) HTN (hypertension): Plan: Continue amlodipine, hold furosemide for now. BP normotensive. (6) YOANA (acute kidney injury): Plan: Creatinine today 1.35, baseline 1.0, prerenal suspected from diuretic for breathing difficulty yesterday. Repeat BMP tomorrow. Plan Dyspnea, suspected bronchospasm (asthma/COPD/LILIA/OHS multifactorial?) PT and OT signed off, patient ambulating well in own room Enoxaparin for DVT prophylaxis Admission and Anticipated Discharge Date Admission Date: September 24, 2022 Subjective Overnight with some sore throat, relieved with chloraseptic spray. Feels her breathing is somewhat better today, was able to sleep through the night without much difficulty compared to previous nights. Still with some wheezing. Review of Systems Review of Systems: All systems reviewed & are unremarkable except as noted in Subjective Physical Exam Constitutional: WD/WN, vitals as above Respiratory: Diffuse expiratory wheezes Cardiovascular: RRR, no murmur, no edema Gastrointestinal (Abdomen): normal bowel sounds, soft, nontender, no hepatosplenomegaly Skin: no rashes, warm and dry Psychiatric: Orientation: alert and oriented x 3 Affect: + anxious affect Results & Data Results & Data ([facility]) Vital Signs (Past 12 Hours) Vital Signs Temp Pulse Pulse Resp BP BP Pulse Ox 09/27/22 10:45 67 22 99 09/27/22 09:14 09/27/22 07:51 66 09/27/22 07:41 36.8 C 66 22 155/80 H 92 09/27/22 07:19 96 H 18 99 09/27/22 04:00 36.5 C 70 20 124/64 92 09/27/22 00:19 67 09/27/22 00:05 61 18 93 O2 Del Method FiO2 09/27/22 10:45 Room Air 21 09/27/22 09:14 Room Air 09/27/22 07:51 09/27/22 07:41 Room Air 09/27/22 07:19 Room Air 09/27/22 04:00 Room Air 09/27/22 00:19 09/27/22 00:05 Room Air PG Care Time/CCT Total # of Minutes Spent Total Time Spent with Patient: Total time spent is greater than 50% in coordination of care (as documented) at patient's floor/unit and/or counseling patient: Coding Level of Care Code 93851 SUB INP/OBS CARE 2/35MIN Diagnoses Acute bronchospasm J98.01 Dyspnea R06.00 Wheeze R06.2 Diabetes mellitus E11.9 HTN (hypertension) I10 YOANA (acute kidney injury) N17.9
[2022-09-27] MEDS: PANTOprazole 40 MG TAB PO SCH (12:26)
--- NOTE | 2022-09-27 13:22 | Pharmacy Report ---
Pharmacy Glycemic Short Note 2 - Date of Service September 27, 2022 - Glycemic Short BSG Results (Last 24 hours): 09/26/22 09/26/22 09/26/22 16:09 20:20 23:51 Glucose POC Glucose 245 H 201 H 151 H 09/27/22 09/27/22 09/27/22 03:59 06:23 07:03 Glucose 222 H POC Glucose 197 H 238 H 09/27/22 11:13 Glucose POC Glucose 228 H OUTPATIENT ANTIDIABETIC REGIMEN: * Novolog 70/30 - 50 units BID * HbA1C ordered ASSESSMENT: 09/27/22 * BSGs yesterday were 248-402/495-245-201 mg/dL and overnight were 151-197 mg/dL. * Patient received 232 units of insulin yesterday (a 55% increase compared to 09/25/22) - this included 100 units of basal and 132 units of bolus. * Fasting today is 238 mg/dL. * Patient completed Solu-Medrol 40 mg IV q8 yesterday (received 3 doses) and is transitioned to prednisone 40 mg PO daily starting today. * Expect some carry over from last dose of Solu-Medrol yesterday, but that overall patient will require less basal insulin. Plan for 90 units today - a 10% decrease. For tomorrow, an additional decrease of 10% is available if fasting continues to trend downwards. * For Novolog, will loosen CF as this appeared aggressive based upon rapidly decreasing BSGs. Continue carbohydrate ratio. * No overnight checks needed since prednisone started. 09/26/22 * BSGs yesterday were 400/[phone] and overnight were 287-284 mg/dL. * Patient received 139 units of insulin (60 units of basal and 89 units of bolus) + an additional 10 units at midnight and 0400. * Fasting today was 248 mg/dL. * This indicates that 80 units of basal is not sufficient (60 units of Lantus + 20 units of bolus overnight). Therefore will increase basal by 20% to 100 units daily. Switching to NPH to allow for easier transition to home regimen. NPH is typically divided 70-30 ... so will give 70 units this morning and 30 units in the evening. * For Novolog, BSGs remained somewhat stable throughout the whole day and night. Tighten both CF and CR significantly. * For Lunch BSG > 400 mg/dL, gave additional 10 unit IV bolus (K = 5.1 today). * Overnight checks to ensure adequate coverage. BACKGROUND * Ms Henderson is an 82 y/o F with a PMH of T2DM who presents with SOB. * She was given Solu-Medrol 125 mg @ 2108 on 09/24/22. Then she was subsequently started on Solu-Medrol 40 mg IV q12 @06,18. * Patient's BSG on admission was 212 mg/dL. However by AM of 09/25/22 BSG was 400 mg/dL. * Patient initially given 40 units of Lantus plus 18 units of Novolog for BSG of 400 mg/dL. Patient's recheck of BSG was 500 mg/dL about 1.5 hours after Novolo g given. At this time pharmacy consulted. * Novolin R 10 units IV x 1 given. Elected to not provide more Novolog coverage since > 1 hour since food consumed + < 2 hours since last Novolog given. There is significant risk for stacking. * Lunch BSG was 383 mg/dL indicating that patient was starting to trend downwards. Novolog already tightened to weight-based stress of 3. * Lantus 20 units with dinner to equal total daily dose of 60 units today. * Overnight checks to ensure adequate coverage. PLAN FOR INPATIENT GLYCEMIC CONTROL: * Hold outpatient oral diabetes medications * Basal insulin * NPH 60 units in the morning (50 units if BSG < 200 mg/dL) and 30 units in the evening * Bolus insulin * NovoLog per scale ACHS or Q6hrs while NPO * Goal Range: Low 110 mg/dL - High 140 mg/dL * Correction Factor: 12 mg/dL/unit * Nutritional / Prandial insulin per carb ratio of 1 unit per 2 grams CHO consumed
--- NOTE | 2022-09-27 14:34 | Pulmonology Progress Note ---
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 Wean prednisone by 10 mg every 3 days until off. Recommend outpatient sleep medicine consultation to evaluate for sleep disordered breathing. Continue nebulized budesonide and formoterol. Would benefit from outpatient PFTs and fractional exhaled nitric oxide testing. Would recommend that she be discharged home when ready on high-dose ICS/LABA inhaler such as Symbicort with a spacer. I will continue to follow along with you. Appreciate the opportunity to participate in the care of the patient. Admission and Anticipated Discharge Date Admission Date: September 24, 2022 Subjective Shortness of breath has improved. She continues to wheeze. Activity level has been low today due to Toribio catheter which will be removed later by nursing. Review of Systems Review of Systems: All systems reviewed & are unremarkable except as noted in HPI & below Physical Exam Physical Exam: Constitutional: Patient appears to be of their stated age. She is obese. She has a mild distress, but is distractible and her anxiety seems to improve when you reassure her. Eyes: Pupils are equal round and reactive to light. Conjunctivae are normal. Anicteric sclera. Ears nose, mouth and throat: Deferred. Neck: Trachea is midline. No significant stridor. Respiratory: Mild expiratory wheeze. Mild tachypnea. No crackles. Cardiovascular: Regular rate and rhythm. No murmurs. 1+ edema in the lower extremities bilaterally. Gastrointestinal: Normal bowel sounds, soft, nontender and nondistended. No hepatosplenomegaly noted. Musculoskeletal: No cyanosis. Patient is able to move all extremities. Strength is 5 out of 5 in the upper and lower extremities. Skin: No rashes, warm dry and intact. Neurologic: No obvious focal neurological deficits seen. Psychiatric: Alert and oriented x3 with an anxious mood. Results & Data Results & Data ([facility]) Vital Signs (Past 12 Hours) Vital Signs Temp Pulse Pulse Resp BP BP Pulse Ox 09/27/22 12:51 70 14 98 09/27/22 11:40 37.0 C 68 22 130/69 92 09/27/22 10:45 67 22 99 09/27/22 09:14 09/27/22 07:51 66 09/27/22 07:41 36.8 C 66 22 155/80 H 92 09/27/22 07:19 96 H 18 99 09/27/22 04:00 36.5 C 70 20 124/64 92 O2 Del Method FiO2 09/27/22 12:51 Room Air 09/27/22 11:40 Room Air 09/27/22 10:45 Room Air 09/27/22 09:14 Room Air 09/27/22 07:51 09/27/22 07:41 Room Air 09/27/22 07:19 Room Air 09/27/22 04:00 Room Air PG Care Time/CCT Total # of Minutes Spent Total Time Spent with Patient: Total time spent is greater than 50% in coordination of care (as documented) at patient's floor/unit and/or counseling patient: Coding Level of Care Code 72641 SUB INP/OBS CARE 2/35MIN Diagnoses Acute bronchospasm J98.01 Acute dyspnea R06.00 Lower extremity edema R60.0
[2022-09-27] MEDS ORDERED: INSULIN HUMAN NPH SC SCH (16:30)
[2022-09-27] MEDS: SIMVASTATIN 40 MG TAB PO SCH (20:21)
[2022-09-28] MEDS: ALBUT/IPRATROP 3MG/0.5MG NEB 3 ML VIAL NEB SCH ×3 (00:36→13:10)
[2022-09-28] MEDS: FORMOTEROL 20 MCG/2 ML VIAL NEB SCH (07:12)
[2022-09-28] MEDS: BUDESONIDE 0.5 MG/2 ML VIAL (PULMICORT) NEB SCH (07:12)
[2022-09-28 07:13] LABS: BUN Creatinine Ratio 35.5 (10-20); Calcium 7.9 mg/dl (8.5-10.1); Creatinine Clr Calc Pharmacy 43.7 ml/min; Est GFR (African American) 56.4 ml/min; Est GFR (Non-African American) 48.6 ml/min; Potassium 3.8 mmol/L (3.5-5.1)
[2022-09-28] MEDS ORDERED: INSULIN HUMAN NPH SC SCH ×2 (07:30→16:30)
--- NOTE | 2022-09-28 08:37 | Pharmacy Report ---
Pharmacy Glycemic Short Note 2 - Date of Service September 28, 2022 - Glycemic Short BSG Results (Last 24 hours): 09/27/22 09/27/22 09/27/22 11:13 16:08 16:10 Glucose POC Glucose 228 H 388 H* 151 H 09/27/22 09/27/22 09/28/22 16:10 20:10 05:26 Glucose 65 L POC Glucose 151 H 171 H 09/28/22 07:24 Glucose POC Glucose 72 OUTPATIENT ANTIDIABETIC REGIMEN: * Novolog 70/30 - 50 units BID * HbA1C ordered ASSESSMENT: 09/28/22 * Veda received a total of 174 units of SQ insulin yesterday with improved glycemic control compared to previous days. * 90 units NPH + 84 units Novolog * BSGs: 197, 238, 228, 151, 171 mg/dL * Started Prednisone 40 mg daily * Fasting BSG of 72 mg/dL is below goal. Will decrease evening NPH dose by 25%. Morning NPH dose was already adjusted yesterday. * Post prandial BSGs are improved. Lunch continues to be the highest value of the day. Will loosen Novolog parameters given overall trend of decreased insulin needs on once daily prednisone. 09/27/22 * BSGs yesterday were 248-402/495-245-201 mg/dL and overnight were 151-197 mg/dL. * Patient received 232 units of insulin yesterday (a 55% increase compared to 09/25/22) - this included 100 units of basal and 132 units of bolus. * Fasting today is 238 mg/dL. * Patient completed Solu-Medrol 40 mg IV q8 yesterday (received 3 doses) and is transitioned to prednisone 40 mg PO daily starting today. * Expect some carry over from last dose of Solu-Medrol yesterday, but that overall patient will require less basal insulin. Plan for 90 units today - a 10% decrease. For tomorrow, an additional decrease of 10% is available if fasting continues to trend downwards. * For Novolog, will loosen CF as this appeared aggressive based upon rapidly decreasing BSGs. Continue carbohydrate ratio. * No overnight checks needed since prednisone started. 09/26/22 * BSGs yesterday were 400/[phone] and overnight were 287-284 mg/dL. * Patient received 139 units of insulin (60 units of basal and 89 units of bolus) + an additional 10 units at midnight and 0400. * Fasting today was 248 mg/dL. * This indicates that 80 units of basal is not sufficient (60 units of Lantus + 20 units of bolus overnight). Therefore will increase basal by 20% to 100 units daily. Switching to NPH to allow for easier transition to home regimen. NPH is typically divided 70-30 ... so will give 70 units this morning and 30 units in the evening. * For Novolog, BSGs remained somewhat stable throughout the whole day and night. Tighten both CF and CR significantly. * For Lunch BSG > 400 mg/dL, gave additional 10 unit IV bolus (K = 5.1 today). * Overnight checks to ensure adequate coverage. BACKGROUND * Ms Henderson is an 82 y/o F with a PMH of T2DM who presents with SOB. * She was given Solu-Medrol 125 mg @ 2108 on 09/24/22. Then she was subsequently started on Solu-Medrol 40 mg IV q12 @06,18. * Patient's BSG on admission was 212 mg/dL. However by AM of 09/25/22 BSG was 400 mg/dL. * Patient initially given 40 units of Lantus plus 18 units of Novolog for BSG of 400 mg/dL. Patient's recheck of BSG was 500 mg/dL about 1.5 hours after Novolog given. At this time pharmacy consulted. * Novolin R 10 units IV x 1 given. Elected to not provide more Novolog coverage since > 1 hour since food consumed + < 2 hours since last Novolog given. There is significant risk for stacking. * Lunch BSG was 383 mg/dL indicating that patient was starting to trend downwards. Novolog already tightened to weight-based stress of 3. * Lantus 20 units with dinner to equal total daily dose of 60 units today. * Overnight checks to ensure adequate coverage. PLAN FOR INPATIENT GLYCEMIC CONTROL: * Hold outpatient oral diabetes medications * Basal insulin * NPH 45-50 units in the morning (45 units if BSG < 120 mg/dL) * NPH 22 units in the evening * Bolus insulin * NovoLog per scale ACHS or Q6hrs while NPO * Goal Range: Low 110 mg/dL - High 140 mg/dL * Correction Factor: 15 mg/dL/unit * Nutritional / Prandial insulin per carb ratio of 1 unit per 2.5 grams CHO consumed
[2022-09-28] MEDS: INSULIN ASPART PER UNIT SC SCH ×2 (08:54→12:07)
[2022-09-28] MEDS: amLODIPine BESYLATE 5 MG TAB PO SCH (08:56)
[2022-09-28] MEDS: AZITHROMYCIN 500 MG in DEXTROSE 5% 250 ML IV SCH (08:56)
[2022-09-28] MEDS: METOPROLOL TARTRATE 25 MG TAB PO SCH (08:57)
[2022-09-28] MEDS: MAGNESIUM OXIDE 400 MG TAB PO SCH (08:57)
[2022-09-28] MEDS: ENOXAPARIN INJ 40 MG/0.4 ML SYR SQ SCH (08:57)
[2022-09-28] MEDS: TROSPIUM 20 MG PO SCH (08:57)
[2022-09-28] MEDS: predniSONE 20 MG TAB PO SCH (08:58)
--- NOTE | 2022-09-28 10:09 | Discharge Summary ---
Discharge Summary Date of Service September 28, 2022 Notes For Next Care Provider PFTs, fractional exhaled nitric oxide texting, sleep study recommended outpatient Started on Symbicort, and discharged with prn Duonebs and steroid PO taper Admission HPI Per Admitting Provider 82 yo F with PMH DM2, HTN, HLD, previous tobacco use history presenting with dyspnea. Pt was recently in [place] for leisure trip last week and noticed onset of cough on 09/19- persistent, non-productive, associated with rattling in chest and moderate chest tightness. She notes exposure to "red tide" algae during that trip. She did return home via plane on 09/23 and notes onset of severe wheezing yesterday evening. She experienced persistent dyspnea and wheezing since then and finally came to ED today at insistence of her . She denies any fevers, chills, chest pain, abdominal pain or other symptoms. Reports continued cough and wheezing. Pt arrived to ED hemodynamically stable. ED labs significant for D-dimer 620, glucose 146, magnesium 1.4. CXR without acute process, CTA chest negative. CBC, BMP, troponin, lipase, BNP otherwise unremarkable. Pt was given albuterol nebulizer, Solumedrol 125 mg in ED. Nebulizer stopped after pt had asymptomatic 16 beat VT run. Magnesium repletion started with 2g IV. On my evaluation, pt reports feeling better since nebulizer treatment. Denies any new symptoms. She does endorse a 10 year smoking history (1 pack per day) but quit about 40 years prior. Has never had COPD workup done. Admission Exam Per Admitting Provider General: tired-appearing, intermittently coughing, hoarse voice HEENT: PERRLA, EOMI, moist mucous membranes, trachea midline CV: RRR, normal S1 and S2, no murmurs Resp: reduced inspiratory effort with diffuse expiratory wheezing in all lung law, no focal crackles noted, no increased work of breathing Abd: soft, nontender, nondistended, no guarding or rebound MSK: normal bulk of all 4 extremities Neuro: AOx3, no focal motor or sensory deficits noted Ext: trace peripheral edema with mild discoloration consistent with venous stasis Principal Dx & Hospital Course #1 = Principal Diagnosis (1) Acute bronchospasm: Presented with dyspnea feeling like she was going to pass out, with hypoxia to 88% on admission, improved to 91-92% on RA with rest. Patient does report having recently traveled to [place] and being exposed to "red tide algae" during that trip. CTA without evidence of pneumonia, fluid overload, PE. Does have at least a 10 year smoking history, possibly some underlying asthma component as well. Transitioned to p.o. steroid 09/27, and discharged with prn nebs and Symbicort with spacer. Azithromycin ordered for anti-inflammatory effect, completed 09/28. Echo ordered to evaluate for valvular abnormality/CHF, no significant findings noted. Pulmonology consulted and appreciate recommendations. PFTs, fractional exhaled nitric oxide texting, sleep study recommended when outpatient to evaluate suspected chronic underlying lung pathology further. (2) Dyspnea: See above (3) Wheeze: see above (4) Diabetes mellitus: History of, on metformin and NovoLog 70/30 50u BID at home. A1c 7.4% on 09/26. Advised to monitor BSGs at home and discuss adjustment of insulins as needed with PCP while on PO steroids. (5) HTN (hypertension): Continue amlodipine and home furosemide. (6) YOANA (acute kidney injury): Resolved, suspect due to diuretic administration during acute respiratory distress. Plan Dyspnea, suspected bronchospasm (asthma/COPD/LILIA/OHS multifactorial?) PT and OT signed off, patient ambulating well in own room, not needing oxygen Discharge home with self care Discharge Exam Constitutional WD/WN, vitals as above Respiratory lungs generally CTA with intermittent end-expiratory wheeze, saturating well on RA Psychiatric A+Ox3, euthymic affect Updated Medication List Medication Instructions Recorded Confirmed Type amlodipine 5 mg tablet 5 mg PO DAILY 11/20/18 09/24/22 History insulin aspar prt-insulin aspart 50 unit subcut BID 11/20/18 09/24/22 History 100 unit/mL (70-30) subcutaneous soln (Novolog Mix 70-30 U-100 Insuln) metformin 1,000 mg tablet 1,000 mg PO BID 11/20/18 09/24/22 History simvastatin 40 mg tablet 40 mg PO HS 11/20/18 09/24/22 History aspirin 81 mg tablet,delayed 162 mg PO DAILY 09/24/22 09/24/22 History release furosemide 20 mg tablet 20 mg PO DAILY 09/24/22 09/24/22 History ibuprofen 200 mg tablet (Advil) 400 mg PO DIRECTED PRN Pain 09/24/22 09/24/22 History metoprolol tartrate 25 mg tablet 25 mg PO BID 09/24/22 09/24/22 History trospium 20 mg tablet 20 mg PO BID 09/24/22 09/24/22 History budesonide-formoterol HFA 160 1 inh inhalation BID #10.2 grams 09/28/22 Rx mcg-4.5 mcg/actuation aerosol inhaler (Symbicort) ipratropium 0.5 mg-albuterol 3 mg 3 ml inhalation BID PRN SOB or 09/28/22 Rx (2.5 mg base)/3 mL nebulization wheezing #90 mL soln prednisone 10 mg tablet See Taper PO DAILY #30 tabs 09/28/22 Rx Hospital Stay Data Consultations 09/24/22 22:02 ED Decision to Admit Stat 09/26/22 07:47 Consult Pulmonology Routine Diagnostic Imagining Performed 09/24/22 20:24 CT angio chest PE protocol Stat Discharge Instructions Given to Patient (Per Discharging Provider) You were admitted to the hospital for evaluation of trouble breathing and wheezing. We think that you had what is called bronchospasm, when the "tubes" of the lungs tighten cutting off good air flow. You received nebulizers, a new inhaler, and steroids with improvement in your symptoms. You did not require oxygen on discharge. It is important that you have follow up with your family doctor, but also with the Assessment Technician to evaluate you with pulmonary function testing, as well as a sleep study to look for sleep apnea, as these are all possible causes for trouble breathing as well. Start prednisone taper tomorrow starting with 40mg daily, decreasing by 10 mg every 3 days until pills are gone. Nebulizers and Symbicort also sent to [facility]. Keep an eye on sugars while on steroids. Can take PPI like Protonix daily while on steroids. If you have any questions, please call the doctors above. If you have urgent medical concerns, please seek urgent medical attention. Total Time Total Time Spent Total Time Spent (In Minutes): 45 minutes Coding Level of Care Code 64796 INP/OBS DISCH >30 MIN Diagnoses Acute bronchospasm J98.01 Dyspnea R06.00 Wheeze R06.2 Diabetes mellitus E11.9 HTN (hypertension) I10 YOANA (acute kidney injury) N17.9
[2022-09-28] MEDS: PANTOprazole 40 MG TAB PO SCH (12:08)
--- NOTE | 2022-09-28 14:42 | Pulmonology Progress Note ---
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 Wean prednisone by 10 mg every 3 days until off. Okay for discharge. Follow-up with [facility] next week. Recommend outpatient sleep medicine consultation to evaluate for sleep disordered breathing. Would benefit from outpatient PFTs and fractional exhaled nitric oxide testing. Discharge on Symbicort, high-dose. Admission and Anticipated Discharge Date Admission Date: September 24, 2022 Subjective Patient was able to ambulate today, but did have some dyspnea. Wheezing has improved but is still present. Cough is improved. No fevers, chills or night sweats. No chest pain. at bedside. Review of Systems Review of Systems: All systems reviewed & are unremarkable except as noted in HPI & below Physical Exam Physical Exam: Constitutional: Patient appears to be of their stated age. She is obese. She has a mild distress, but is distractible and her anxiety seems to improve when you reassure her. Eyes: Pupils are equal round and reactive to light. Conjunctivae are normal. Anicteric sclera. Ears nose, mouth and throat: Deferred. Neck: Trachea is midline. No significant stridor. Respiratory: Mild expiratory wheeze. Mild tachypnea. No crackles. Cardiovascular: Regular rate and rhythm. No murmurs. 1+ edema in the lower extremities bilaterally. Gastrointestinal: Normal bowel sounds, soft, nontender and nondistended. No hepatosplenomegaly noted. Musculoskeletal: No cyanosis. Patient is able to move all extremities. Strength is 5 out of 5 in the upper and lower extremities. Skin: No rashes, warm dry and intact. Neurologic: No obvious focal neurological deficits seen. Psychiatric: Alert and oriented x3 with an anxious mood. Results & Data Results & Data ([facility]) Vital Signs (Past 12 Hours) Vital Signs Temp Pulse Pulse Pulse Resp BP BP 09/28/22 13:10 64 18 09/28/22 13:02 36.6 C 57 L 72 16 155/80 H 120/64 09/28/22 09:24 09/28/22 07:36 36.6 C 57 L 16 120/64 09/28/22 07:00 52 L 09/28/22 07:13 53 L 20 03/09/23 03:09 36.7 C 54 L 18 121/70 Pulse Ox O2 Del Method 09/28/22 13:10 92 Room Air 09/28/22 13:02 97 09/28/22 09:24 Room Air 09/28/22 07:36 97 Room Air 09/28/22 07:00 09/28/22 07:13 92 Room Air 09/28/22 03:09 93 Room Air PG Care Time/CCT Total # of Minutes Spent Total Time Spent with Patient: Total time spent is greater than 50% in coordination of care (as documented) at patient's floor/unit and/or counseling patient: Coding Level of Care Code 04646 SUB INP/OBS CARE 08/16MIN Diagnoses Acute bronchospasm J98.01 Acute dyspnea R06.00 Lower extremity edema R60.0
--- NOTE | 2022-10-03 19:32 | Billing Data ---
Date of Service October 03, 2022 Coding Level of Care Code 33599 INT INP/OBS CARE
== END 2022-09-28 15:15 | disposition home or self-care (01) | DRG 918 ==
LOC: ED 19:05 → SUATTDRO 22:38 → 2S 22:38